=== PATIENT | male | born 1985 | race Caucasian/White ===

== ENCOUNTER → 2019-03-03 11:01 | Outpatient (CLI) | payer OTHER, SELFPAY ==
--- NOTE | 2019-03-03 11:06 | XR_ITS ---
PROCEDURE: XR KNEE RT 3V CLINICAL INDICATION: ACUTE RT KNEE PAIN, ACUTE GOUT COMPARISON: No exams were available for comparison FINDINGS: No fracture or dislocation. No lytic or blastic change. There is normal mineralization. The joint spaces are well-preserved. No significant degenerative/arthritic changes. No erosive changes evident. Other findings:There is increased density in the suprapatellar region consistent with suprapatellar effusion. No bony lytic changes or destruction IMPRESSION: Knee joint effusion otherwise negative Dictated by: Anand Arroyo MD 03/03/2019 11:49 Electronically signed by Anand Arroyo MD in [place] 03/03/2019 11:49
== END ==
PROVIDERS: PCP Family Medicine; Visit Provider Nurse Practitioner
DX: M10.9 Gout, unspecified (principal); M25.561 Pain in right knee
CPT/HCPCS: 73562

== ENCOUNTER → 2019-03-05 15:06 | Outpatient (CLI) | payer OTHER, SELFPAY ==
[2019-03-07 17:08] LABS: Clarity,Fluid Cloudy (Clear); Color,Fluid Yellow (Yellow); Eosinophils,Fluid 0 % (Not Estab.); Lymphocytes,Fluid 9 % (Not Estab.); Macrophages,Fluid 16 % (Not Estab.); Nucleated cells, Syn. Fluid 4026 cells/uL (0-200); Polys,Fluid 75 % (Not Estab.); RBC,Fluid Rare /uL (Not Estab.)
== END ==
PROVIDERS: Visit Provider Orthopaedic Surgery
DX: M10.061 Idiopathic gout, right knee (principal)
CPT/HCPCS: 87070; 87205; 89051

== ENCOUNTER 2020-03-28 13:02 | Emergency (ER) | payer OTHER, SELFPAY ==
[2020-03-28 13:09] VITALS: BP 151/96; PULSE 100; RESP 20; TEMP 36.7; O2SAT 99; BMI 40.9
--- NOTE | 2020-03-28 13:18 | HMH.EDUTC ---
[facility] [place] Disposition Clinical Impression: Gouty arthritis of right great toe Disposition: Home, Self-Care Condition on Discharge: Good Instructions: DI for Gout Prescriptions: methylPREDNISolone [Medrol 4mg tab] 4 mg PO DIRECTED #21 tab Transmission Status: Pending to [facility] Referrals: Neil Neumann MD [Primary Care Provider] - Time of Disposition: 13:21 Medical Decision Making - Ray Inquiry Pt receiving controlled substance: No Vital Signs: 03/28/20 13:09 Temperature 98.1 F Temperature Source Oral Pulse Rate [Radial] 100 H Respiratory Rate 20 Blood Pressure [Right Arm] 151/96 H Blood Pressure Mean [Right Arm] 114 Blood Pressure Source [Right Arm] Automatic Cuff Blood Pressure Position [Right Arm] Sitting 02 Sat by Pulse Oximetry 99 Oxygen Delivery Method Room Air [facility] [place] HPI - General Stated complaint: Gout Time Seen by Provider: 03/28/20 13:18 Mode of Arrival: Ambulatory Source of Information: Patient Limitations: No Limitations Description of Symptoms (Recalled from Triage Doc. by RN): gout flareup right foot HEENT Symptoms (Recalled from RN notes): No Resp Symptoms (Recalled from RN notes): No Skin Symptoms (Recalled from RN notes): No MS Symptoms (Recalled from RN notes): Yes Functional Status (Recalled from RN notes): wnl - History of Present Illness Provider Complaint: Gout right great toe - pain and swelling. Started a few days ago. Onset (ago): day(s) (2) Location: right, lower extremity Radiation: non-radiation Relieving factors: none Exacerbating factors: none Treatments prior to arrival: none - Related Data Home Medications Medication Instructions Recorded Confirmed colchicine 0.6 mg tablet 0.6 mg PO DAILY 03/05/19 03/05/19 indomethacin 50 mg capsule 50 mg PO BID 03/05/19 03/05/19 prednisone 20 mg tablet 20 mg PO BID 03/05/19 03/05/19 sertraline 50 mg tablet 50 mg PO DAILY 03/05/19 03/05/19 trazodone 50 mg tablet 50 mg PO DAILY 03/05/19 03/05/19 Previous Rx's Medication Instructions Recorded methylPREDNISolone [Medrol 4mg 4 mg PO DIRECTED #21 tab 03/28/20 tab] Allergies Allergy/AdvReac Type Severity Reaction Status Date / Time PCN (PENICILLIN) Allergy Mild UNKNOWN Uncoded 03/05/19 13:47 SULFA (SULFONAMIDE) Allergy Mild UNKNOWN Uncoded 03/05/19 13:47 - Worker's Comp Is this a Worker's Comp case?: No [facility] History - Hepatitis A Screen Drug use history?: No High risk sexual behaviors?: No History of sexually transmitted infection?: No Currently employed?: No Childcare worker?: No Do you have indoor plumbing?: Yes Do you have electricity?: Yes Attestation statement:: This patient has been screened for Hepatitis A risk factors. I have reviewed the patient's past medical history: Yes Medical History: Reports:: Hypertension Other Medical History: Reports: Arthritis, Other Comment: History of gout, osteomylitis Laterality Cases: Bilateral: Tonsillectomy Other Surgeries: Yes: Other Fractures: Yes Comment: left ankle fusion - Social History Smoking Status: Former smoker Alcohol Intake: never Substance Use Type: denies use Occupational Status: other Housing: house Household Members: family Family Hx:: Diabetes, Cancer ROS Obtained: Yes All systems reviewed & no additional complaints - Musculoskeletal Musculoskeletal: Reports other (pain and swelling right great toe) Physical Exam - General General appearance: alert, in no apparent distress - Head Head exam: atraumatic, normocephalic, normal inspection - Eye Eye exam: Present: normal appearance, PERRL, EOMI - ENT ENT exam: Present: normal exam, normal oropharynx, mucous membranes moist, TM's normal bilaterally, normal external ear exam - Neck Neck exam: Present: normal inspection, full ROM, trachea midline. Absent: meningismus, lymphadenopathy - Chest Chest inspection: Present: normal inspection, symmetric chest wall rise. Absent: tenderness - Respirato
[2020-03-28 13:49] VITALS: BP 151/96; PULSE 100; RESP 20; TEMP 36.7; O2SAT 99
== END 2020-03-28 13:50 | disposition home or self-care (01) ==
PROVIDERS: Emergency Provider Physician Assistant; PCP Family Medicine
DX: M10.071 Idiopathic gout, right ankle and foot (principal); I10 Essential (primary) hypertension; Z88.0 Allergy status to penicillin; Z88.2 Allergy status to sulfonamides
CPT/HCPCS: 96372; 99201; J1030

== ENCOUNTER → 2020-04-15 15:02 | Outpatient (CLI) | payer OTHER, SELFPAY ==
--- NOTE | 2020-04-15 15:09 | XR_ITS ---
PROCEDURE: XR FOOT RT MIN 3V CLINICAL INDICATION: PLANTAR FASCIAL FIBROMATOSIS,RT FOOT PAIN COMPARISON: No exams were available for comparison FINDINGS: No fracture or dislocation. No lytic or blastic change. There is normal mineralization. Minimal hallux valgus. There is a prominent posterior talar process/os trigonum. Mild osteoarthritic changes are present at the talonavicular joint and navicular cuneiform joint. Other findings:None. IMPRESSION: Mild degenerative changes Dictated by: Anand Arroyo MD 04/15/2020 16:37 Anand Arroyo MD in [place] 04/15/2020 16:37
== END ==
PROVIDERS: PCP Family Medicine; Visit Provider Nurse Practitioner
DX: M72.2 Plantar fascial fibromatosis (principal); M79.671 Pain in right foot
CPT/HCPCS: 73630

== ENCOUNTER → 2020-05-24 10:52 | Outpatient (CLI) | payer OTHER, SELFPAY ==
--- NOTE | 2020-05-24 11:04 | XR_ITS ---
PROCEDURE: XR ANKLE WT BEARING RT MIN 3V CLINICAL INDICATION: pain COMPARISON: CR XR FOOT WT BEARING RT 3V from 05/24/2020 FINDINGS: No fracture or dislocation. No lytic or blastic change. There is normal mineralization. The joint spaces are well-preserved. No significant degenerative/arthritic changes. No erosive changes evident. Other findings:None. IMPRESSION: No acute findings. Dictated by: Anand Arroyo MD 05/24/2020 17:17 Anand Arroyo MD in [place] 05/24/2020 17:17
--- NOTE | 2020-05-24 11:04 | XR_ITS ---
PROCEDURE: XR FOOT WT BEARING RT 3V CLINICAL INDICATION: Pain COMPARISON: CR XR FOOT RT MIN 3V from 04/15/2020 FINDINGS: No fracture or dislocation. No lytic or blastic change. There is normal mineralization. There are mild osteoarthritic changes of the talonavicular and navicular cuneiform joint as well as the tarsal metatarsal joints. There is a small calcific density as seen on the oblique view between the junction the navicular cuboid talus and calcaneus. This may only be related to an osteophyte with an overlying Mach line. Cannot exclude the possibility of an avulsion fracture at this area. Other findings:None. IMPRESSION: Mild osteoarthritic changes. Osteophyte with Mach line versus avulsion fracture of the talus at the junction of the talus calcaneus navicular and cuneiform. Dictated by: Anand Arroyo MD 05/24/2020 18:10 Anadn Arroyo MD in [place] 05/24/2020 18:10
== END ==
PROVIDERS: PCP Nurse Practitioner; Visit Provider Podiatrist
DX: M76.71 Peroneal tendinitis, right leg (principal)
CPT/HCPCS: 73610; 73630

== ENCOUNTER 2020-08-29 16:02 | Emergency (ER) | payer OTHER, SELFPAY ==
[2020-08-29 16:05] VITALS: BP 194/105; PULSE 91; RESP 20; TEMP 36.8; O2SAT 99; BMI 42.0
--- NOTE | 2020-08-29 16:22 | HMH.EDUTC ---
[facility] [place] Impression: Gout attack Qualifiers: Gout site: knee Gout etiology: unspecified cause Laterality: left Qualified Code(s): M10.9 - Gout, unspecified Disposition: Home, Self-Care Condition on Discharge: Good Instructions: Gout, DI for Gout, Indomethacin, Losartan Additional Instructions: Follow up with your Family Doctor if needed You was given enough blood pressure medication for 2 weeks until you can get into your Family Doctor to get refill make sure you follow up Start oral steriod tomorrow 08/30/20 Return if needed Straight to ER if any life threatening symptoms Prescriptions: Indomethacin 50 mg PO TID 10 Days #30 cap Transmission Status: Received by [id number] Losartan Potassium 50 mg PO DAILY 14 Days #14 tab Transmission Status: Received by [id number] methylPREDNISolone [Medrol 4mg tab] 4 mg PO DIRECTED #21 tab Transmission Status: Received by [id number] Referrals: Neil Neumann MD [Primary Care Provider] - As needed Time of Disposition: 16:58 Medical Decision Making - Ray Inquiry Pt receiving controlled substance: No Ray was queried for this patient: No Vital Signs: 08/29/20 16:05 Temperature 98.3 F Temperature Source Oral Pulse Rate [Right Brachial] 91 H Respiratory Rate 20 Blood Pressure [Right Arm] 194/105 H Blood Pressure Mean [Right Arm] 134 Blood Pressure Source [Right Arm] Automatic Cuff Blood Pressure Position [Right Arm] Sitting 02 Sat by Pulse Oximetry 99 Oxygen Delivery Method Room Air Orders (Tests/Meds): ED MEDICATIONS Discontinued Medications Generic Name Dose Route Start Last Admin Trade Name Freq PRN Reason Stop Dose Admin Methylprednisolone Sodium Succinate 125 mg 08/29/20 16:25 08/29/20 16:35 Methylprednisolone Sod Succ 125mg Vial IM 08/29/20 16:26 125 mg ONCE ONE Administration [facility] [place] - General Stated complaint: gout in left knee Time Seen by Provider: 08/29/20 16:22 Mode of Arrival: Ambulatory Source of Information: Patient Limitations: No Limitations Description of Symptoms (Recalled from Triage Doc. by RN): PATIENT C/O GOUT IN LEFT KNEE X 3 DAYS HEENT Symptoms (Recalled from RN notes): No Resp Symptoms (Recalled from RN notes): No Skin Symptoms (Recalled from RN notes): No MS Symptoms (Recalled from RN notes): Yes Functional Status (Recalled from RN notes): WNL - History of Present Illness Provider Complaint: Patient states that he has a history of gout in his left knee States that for the last 3 days he has felt it coming back State that ever so often he has a gout flare and has to come in and get a shot and get treated States that today it was still bothering him so he came in to get treated States that also he is out of his blood pressure medication and hasnt been able to get into his PCP and needed to see if he could get some - Related Data Home Medications Medication Instructions Recorded Confirmed indomethacin 50 mg capsule 50 mg PO BID 03/05/19 05/24/20 allopurinol 300 mg tablet 300 mg PO tab 05/24/20 05/24/20 Previous Rx's Medication Instructions Recorded diclofenac sodium 1 % topical gel 4 g TOPICAL QID PRN 30 Days #100 g 05/24/20 meloxicam 7.5 mg tablet 7.5 mg PO ONCE 30 Days #30 tab 05/24/20 methylprednisolone 4 mg tablets in 4 mg PO PER PKG DIR #21 tab 05/24/20 a dose pack Indomethacin 50 mg PO TID 10 Days #30 cap 08/29/20 Losartan Potassium 50 mg PO DAILY 14 Days #14 tab 08/29/20 methylPREDNISolone [Medrol 4mg 4 mg PO DIRECTED #21 tab 08/29/20 tab] Allergies Allergy/AdvReac Type Severity Reaction Status Date / Time Penicillins Allergy Unknown Verified 05/24/20 09:59 Sulfa (Sulfonamide Allergy Unknown Verified 05/24/20 09:59 Antibiotics) - Worker's Comp Is this a Worker's Comp case?: No [facility] History - Hepatitis A Screen Drug use history?: No High risk sexual behaviors?: No History of sexually transmitted infection?
[2020-08-29 16:58] VITALS: BP 194/105; PULSE 91; RESP 20; TEMP 36.8; O2SAT 99
== END 2020-08-29 17:03 | disposition home or self-care (01) ==
PROVIDERS: Emergency Provider Nurse Practitioner; PCP Family Medicine
DX: M10.062 Idiopathic gout, left knee (principal); I10 Essential (primary) hypertension; Z79.899 Other long term (current) drug therapy
CPT/HCPCS: 96372; 99202; G0463

== ENCOUNTER 2020-10-14 19:33 | Emergency (ER) | payer OTHER, SELFPAY ==
[2020-10-14 19:35] VITALS: BP 167/105; PULSE 91; RESP 19; TEMP 36.8; O2SAT 98; BMI 41.0
--- NOTE | 2020-10-14 19:53 | HMH.EDUTC ---
[facility] [place] Impression: Gout attack Qualifiers: Gout site: hand Gout etiology: unspecified cause Laterality: right Qualified Code(s): M10.9 - Gout, unspecified Disposition: Home, Self-Care Condition on Discharge: Good Instructions: Gout, DI for Gout, Indomethacin, Methylprednisolone Additional Instructions: Start your Indomethacin and Medrol dose pack tomorrow when you pick it up from the pharmacy Take medication as directed Follow up with Family Doctor if no improvement or any worsening of symptoms Return if needed Straight to ER if any life threatening symptoms Prescriptions: Indomethacin 50 mg PO TID 10 Days #30 cap Transmission Status: Received by [facility] methylPREDNISolone [Medrol 4mg tab] 4 mg PO DIRECTED #21 tab Transmission Status: Received by [facility] Referrals: Neil Neumann MD [Primary Care Provider] - As needed Time of Disposition: 20:25 Medical Decision Making - Ray Inquiry Pt receiving controlled substance: No Ray was queried for this patient: No Vital Signs: 10/14/20 19:35 Temperature 98.3 F Temperature Source Oral Pulse Rate [Left Brachial] 91 H Respiratory Rate 19 Blood Pressure [Left Arm] 167/105 H Blood Pressure Mean [Left Arm] 125 Blood Pressure Source [Left Arm] Automatic Cuff Blood Pressure Position [Left Arm] Sitting 02 Sat by Pulse Oximetry 98 Oxygen Delivery Method Room Air - Lab Data Lab Results 10/14/20 20:00: Uric Acid 11.5 H Orders (Tests/Meds): ED MEDICATIONS Discontinued Medications Generic Name Dose Route Start Last Admin Trade Name Freq PRN Reason Stop Dose Admin Methylprednisolone Sodium Succinate 125 mg 10/14/20 20:21 10/14/20 20:29 Methylprednisolone Sod Succ 125mg Vial IM 10/14/20 20:22 125 mg ONCE ONE Administration ORDERS Category Date Time Status XR hand RT min 3V Stat Exams 10/14/20 19:58 Taken - Radiology Data #1 Image(s): Hand (right) Image Reviewed: Yes I reviewed the patient's radiology image Preliminary Findings: No Fracture Seen Medical Decision Narrative: Patient states that he has taken Indomethacin and Medrol in the past without reactions or complications [facility] [place] - General Stated complaint: right hand pain and swollen Time Seen by Provider: 10/14/20 19:40 Mode of Arrival: Ambulatory Source of Information: Patient Limitations: No Limitations Description of Symptoms (Recalled from Triage Doc. by RN): PATIENT C/O SWELLING TO RIGHT HAND X 3 DAYS HEENT Symptoms (Recalled from RN notes): No Resp Symptoms (Recalled from RN notes): No Skin Symptoms (Recalled from RN notes): No MS Symptoms (Recalled from RN notes): Yes Functional Status (Recalled from RN notes): WNL - History of Present Illness Provider Complaint: Patient states that he has been having pain, redness and swelling in right hand for the last 3 days State that pain seems to coming mostly from ring finger States that he has a history of gout and feels like it does when his gout acts up Denies known injury - Related Data Home Medications Medication Instructions Recorded Confirmed indomethacin 50 mg capsule 50 mg PO BID 03/05/19 05/24/20 allopurinol 300 mg tablet 300 mg PO tab 05/24/20 05/24/20 Previous Rx's Medication Instructions Recorded diclofenac sodium 1 % topical gel 4 g TOPICAL QID PRN 30 Days #100 g 05/24/20 meloxicam 7.5 mg tablet 7.5 mg PO ONCE 30 Days #30 tab 05/24/20 methylprednisolone 4 mg tablets in 4 mg PO PER PKG DIR #21 tab 05/24/20 a dose pack Indomethacin 50 mg PO TID 10 Days #30 cap 08/29/20 Losartan Potassium 50 mg PO DAILY 14 Days #14 tab 08/29/20 methylPREDNISolone [Medrol 4mg 4 mg PO DIRECTED #21 tab 08/29/20 tab] Indomethacin 50 mg PO TID 10 Days #30 cap 10/14/20 methylPREDNISolone [Medrol 4mg 4 mg PO DIRECTED #21 tab 10/14/20 tab] Allergies Allergy/AdvReac Type Severity Reaction Status Date / Time Penicillins Allergy Unknown V
--- NOTE | 2020-10-14 19:58 | XR_ITS ---
PROCEDURE INFORMATION: Exam: XR Right Hand Exam date and time: 10/14/2020 7:58 PM Age: 35 years old Clinical indication: Patient HX: Right hand pain and swelling since Russ, no known injury. Patient stated prior HX of gout. Very large patient. TECHNIQUE: Imaging protocol: XR Right hand. Views: 3 or more views. Total images: 3 COMPARISON: No relevant prior studies available. FINDINGS: Bones/joints: No fractures. 5 mm subcortical cyst in the lateral aspect of the 3rd metacarpal head which is nonspecific and may be degenerative. Questionable small carpal erosions involving the lunate and proximal hamate. No articular subluxations. No juxta-articular osteopenia is evident. No subperiosteal bone resorption. No chondrocalcinosis. Soft tissues: No periostitis or osteolysis. Nonspecific soft tissue swelling in the hand, predominantly dorsally. No soft tissue nodularity. No soft tissue calcification. No radiopaque foreign bodies. No soft tissue air. Other findings: Carpal relationships are normal. Distal radioulnar alignment is normal. Normal mineralization. IMPRESSION: 1. Nonspecific soft tissue swelling in the hand, predominantly dorsal. 2. There are few small 1-2 mm suspected carpal erosions versus degenerative subcortical cysts involving the lunate and proximal hamate, and a 5 mm subcortical cyst in the 3rd metacarpal head. The pattern is not highly specific for inflammatory arthropathy at this point and could simply represent degenerative subcortical cystic change, although early changes of chronic inflammatory arthropathy are not excluded. There are no specific radiographic features of gout currently.
[2020-10-14 20:16] LABS: Uric Acid 11.5 mg/dl (3.5-8.5)
[2020-10-14 20:40] VITALS: BP 167/105; PULSE 91; RESP 19; TEMP 36.8; O2SAT 98
== END 2020-10-14 20:43 | disposition home or self-care (01) ==
PROVIDERS: Emergency Provider Nurse Practitioner; PCP Family Medicine
DX: M10.041 Idiopathic gout, right hand (principal); I10 Essential (primary) hypertension; Z79.899 Other long term (current) drug therapy
CPT/HCPCS: 73130; 84550; 96372; 99202; G0463

== ENCOUNTER 2020-11-17 13:16 | Emergency (ER) | payer OTHER, SELFPAY ==
[2020-11-17 13:17] VITALS: BP 177/104; PULSE 96; RESP 20; TEMP 37.1; O2SAT 97; BMI 42.3
[2020-11-17 14:00] VITALS: BP 132/75; PULSE 79; RESP 20; O2SAT 96
[2020-11-17 14:30] VITALS: BP 135/74; PULSE 83; RESP 20; O2SAT 97
[2020-11-17 15:00] VITALS: BP 148/79; PULSE 81; O2SAT 97
--- NOTE | 2020-11-17 15:00 | HMH.EDGENADL ---
ED Disposition Clinical Impression: Effusion, right knee Gout Qualifiers: Gout site: knee Gout etiology: unspecified cause Chronicity: acute Laterality: right Qualified Code(s): M10.9 - Gout, unspecified Disposition: Home, Self-Care Condition on Discharge: Fair Additional Instructions: Call Dr. Phillips's office again to see if you can move appointment sooner. I recommend that she be seen within the next 2 days. Percocet as needed for pain. Prednisone and Indocin as prescribed. Crutches as needed. Return to the emergency department if worsening pain or any fever greater than 100.4 degrees. Additional instructions for CONTROLLED SUBSTANCES: You have been prescribed a medication that is a controlled substance. Controlled substances include pain medications known as opiates and sedative nerve medications known as benzodiazepines. Tramadol, fioricet, and gabapentin are also controlled substances. Some common opiates include: Codeine (such as Tylenol #3) Hydrocodone (Vicodin, Lortab, Lorcet, Nelson) Oxycodone (Percocet, Percodan, Oxycodone, Oxy IR) Some common benzodiazepines include: Diazepam (Valium) Lorazepam (Ativan) Alprazolam (Xanax) Clonazepam (Klonopin) Oxazepam (Serax) All of these controlled substances are highly addictive and frequently abused. Misuse can and frequently does lead to addiction as well as overdose and . Medication should be stored in a locked cabinet or other secure storage unit. Do not store the medication in a motor vehicle. Short term supplies, 3 days or less, are prescribed because of the highly addictive nature of the medication. Any of the controlled substance medication NOT taken should be disposed of properly and NOT SAVED. The recommended method of disposing of unused medications is: Place the medicines in a sealable plastic bag. If the medicine is a solid, crush it or add water to dissolve it. Add something undesirable (cat litter, coffee grounds, etc.) Dispose of sealed bag in household trash Do not flush or pour unused medicines down a sink or drain. Controlled substances should not be shared, given away or sold. Because of the addictive nature and frequent abuse, these medications are sometimes stolen. These medications should be kept in a safe place where they cannot be stolen. Do not keep them in your car or purse. Lost or stolen prescriptions for controlled substances WILL NOT BE REFILLED in this emergency department, regardless of whether a police report was filed. Prescriptions: Oxycodone HCl/Acetaminophen [Percocet 5/325mg tablet] 1 tab PO Q6HP PRN #10 tablet PRN Reason: Moderate To Severe Pain Transmission Status: Sent to [facility] Indomethacin 50 mg PO TID #15 cap Transmission Status: Pending to [facility] predniSONE [Prednisone 20mg Tab] 20 mg PO BID #10 tab Transmission Status: Pending to [facility] Referrals: Neil Neumann MD [Primary Care Provider] - - Critical Care Critical Care Time: No Attestation: On 11/17/20, the high probability of a clinically significant, sudden or life threatening deterioration of the following system(s) required my full and direct attention, intervention and personal management. The time I documented below is in addition to time spent performing reported procedures but includes the following listed in this critical care notation. Medical Decision Making - Medical Records Medical records reviewed: Yes: I reviewed the patient's medical records. MR Comment: Reviewed prior meds. Confirms patient's history regarding his medications. Reviewed prior orthopedic visit to Dr. Phillips. - Ray Inquiry Pt receiving controlled substance: Yes Ray was queried for this patient: Yes Risks and benefits of using a controlled substance: were discussed with pt by me Vital Signs: 11/17/20 13:17 11/17/20 14:00 11/17/20 14:30 Temperature 98.8 F Temperature Source Oral Pulse Rat
[2020-11-17 15:30] VITALS: BP 148/80; PULSE 72; O2SAT 97
[2020-11-17 15:59] VITALS: BP 140/80; PULSE 72; RESP 18; TEMP 37.1; O2SAT 97
== END 2020-11-17 17:20 | disposition home or self-care (01) ==
PROVIDERS: Emergency Provider Emergency Medicine; PCP Family Medicine
DX: M25.461 Effusion, right knee (principal); M10.061 Idiopathic gout, right knee; I10 Essential (primary) hypertension; Z88.0 Allergy status to penicillin; Z88.2 Allergy status to sulfonamides
CPT/HCPCS: 96374; 96375; 99282; J2405

== ENCOUNTER → 2020-11-30 13:57 | Outpatient (CLI) | payer OTHER, SELFPAY ==
--- NOTE | 2020-11-30 14:00 | XR_ITS ---
PROCEDURE: XR KNEE RT 4V CLINICAL INDICATION: right knee pain COMPARISON: CR XR KNEE RT 3V from 03/03/2019 FINDINGS: No fracture or dislocation. No lytic or blastic change. There is normal mineralization. There are minimal osteoarthritic changes involving all 3 compartments. Small suprapatellar effusion is noted. Other findings:None. IMPRESSION: Minimal osteoarthritis with small knee joint effusion. The joint space narrowing is slightly greater when compared to 03/03/2019 Dictated by: Anand Arroyo MD 11/30/2020 14:55 Anand Arroyo MD in [place] 11/30/2020 14:55
== END ==
PROVIDERS: PCP Family Medicine; Visit Provider Orthopaedic Surgery
DX: M25.461 Effusion, right knee (principal)
CPT/HCPCS: 73564

== ENCOUNTER 2020-12-12 13:41 | Emergency (ER) | payer OTHER, SELFPAY ==
[2020-12-12 13:58] VITALS: BP 195/113; PULSE 99; RESP 20; TEMP 36.8; O2SAT 98; BMI 40.4
[2020-12-12 14:10] VITALS: BP 0/0; PULSE 92; RESP 21; TEMP 36.9
--- NOTE | 2020-12-12 14:34 | HMH.EDUTC ---
[facility] [place] Clinical Impression: Exposure to COVID-19 virus Disposition: Home, Self-Care Condition on Discharge: Good Instructions: Preventing the Spread of Coronavirus Discharge Instructions Additional Instructions: Drink plenty of fluids. Take tylenol for pain or fever. Return if you begin to have difficulty breathing. Follow up with your regular doctor. GO TO THE ER FOR ANY WORSENING SYMPTOMS Quarantine until you know the results of your covid-19 test. If it is positive, the health department should call you and give you further instructions about your length of Quarantine and other thing. follow up with your primary care doctor regarding your elevated blood pressure. Referrals: Neil Neumann MD [Primary Care Provider] - Time of Disposition: 14:36 Medical Decision Making - Medical Records Medical records reviewed: No: I reviewed the patient's medical records. - Ray Inquiry Pt receiving controlled substance: No Vital Signs: 12/12/20 13:58 12/12/20 14:10 Temperature 98.3 F 98.4 F Temperature Source Oral Pulse Rate 92 H Pulse Rate [Left] 99 H Respiratory Rate 20 21 Blood Pressure 0/0 L Blood Pressure [Right Arm] 195/113 H Blood Pressure Mean [Right Arm] 140 02 Sat by Pulse Oximetry 98 Orders (Tests/Meds): ORDERS Category Date Time Status Full Resp Panel w/COVID ([facility]) Routine Lab 12/12/20 14:03 [place] [facility] [place] - General Stated complaint: covid test Time Seen by Provider: 12/12/20 14:34 Mode of Arrival: Ambulatory Source of Information: Patient Limitations: No Limitations Description of Symptoms (Recalled from Triage Doc. by RN): pt was exposed to covid positive pt at work last week. pt is asymptomatic. HEENT Symptoms (Recalled from RN notes): No Resp Symptoms (Recalled from RN notes): No Skin Symptoms (Recalled from RN notes): No MS Symptoms (Recalled from RN notes): No Functional Status (Recalled from RN notes): na - History of Present Illness Provider Complaint: He was exposed to covid-19 around 5 to 6 days. He denies any symptoms. His exposure happened at work. - Related Data Home Medications Medication Instructions Recorded Confirmed allopurinol 300 mg tablet 300 mg PO tab 05/24/20 05/24/20 lisinopril 10 mg tablet 10 mg PO DAILY 11/30/20 11/30/20 Previous Rx's Medication Instructions Recorded diclofenac sodium 1 % topical gel 4 g TOPICAL QID PRN 30 Days #100 g 05/24/20 Losartan Potassium 50 mg PO DAILY 14 Days #14 tab 08/29/20 Indomethacin 50 mg PO TID #15 cap 11/17/20 Oxycodone HCl/Acetaminophen 1 tab PO Q6HP PRN #10 tab 11/17/20 [Percocet 5/325mg tablet] Allergies Allergy/AdvReac Type Severity Reaction Status Date / Time Penicillins Allergy Unknown Verified 11/30/20 15:15 Sulfa (Sulfonamide Allergy Unknown Verified 11/30/20 15:15 Antibiotics) - Worker's Comp Is this a Worker's Comp case?: No [facility] History - Hepatitis A Screen Drug use history?: No High risk sexual behaviors?: No History of sexually transmitted infection?: No Currently employed?: No Childcare worker?: No Do you have indoor plumbing?: Yes Do you have electricity?: Yes Attestation statement:: This patient has been screened for Hepatitis A risk factors. I have reviewed the patient's past medical history: Yes Medical History: Reports:: Anxiety, Hypertension Other Medical History: Reports: Arthritis, Other (Gout ) Comment: Gout Laterality Cases: Bilateral: Tonsillectomy Other Surgeries: Yes: Other Fractures: Yes Comment: left ankle fusion - Social History Smoking Status: Current every day smoker Tobacco Type: smokeless tobacco # Packs/Day (cigarettes): 0 Alcohol Intake: never Substance Use Type: denies use Occupational Status: employed Housing: house Household Members: family - Psychiatric History Pschychiatric History:: Reports:: Anxiety Family Hx:: No significant family history ROS Obtained: Yes All systems reviewed &
[2020-12-12 18:09] LABS: Adenovirus,PCR Not Detected (NotDetected); Bordetella Pertussis Not Detected (NotDetected); Chlamydophila Pneumoniae, PCR Not Detected (NotDetected); Coronavirus 19, PCR Not Detected (NotDetected); Coronavirus 229E Not Detected (NotDetected); Coronavirus NL63 Not Detected (NotDetected); Coronavirus OC43 Not Detected (NotDetected); Coronovirus HKU1,PCR Not Detected (NotDetected); Human Metapneumovirus Not Detected (NotDetected); Influenza A, PCR Not Detected (NotDetected); Influenza AH1, 2009 Not Detected (NotDetected); Influenza AH1, PCR Not Detected (NotDetected); Influenza AH3,PCR Not Detected (NotDetected); Influenza B, PCR Not Detected (NotDetected); Mycoplasma Pneumoniae, PCR Not Detected (NotDetected); Parainfluenza 1, PCR Not Detected (NotDetected); Parainfluenza 2, PCR Not Detected (NotDetected); Parainfluenza 3, PCR Not Detected (NotDetected); Parainfluenza 4, PCR Not Detected (NotDetected); Respiratory Syncytial Virus Not Detected (NotDetected); Rhinovirus/Enterovirus Not Detected (NotDetected)
== END 2020-12-12 14:49 | disposition home or self-care (01) ==
PROVIDERS: Emergency Provider Nurse Practitioner Family; PCP Family Medicine
DX: Z20.822 Contact with and (suspected) exposure to COVID-19 (principal); F41.9 Anxiety disorder, unspecified; F17.210 Nicotine dependence, cigarettes, uncomplicated; Z88.0 Allergy status to penicillin; Z88.2 Allergy status to sulfonamides
CPT/HCPCS: 87581; 87633; 87798; 99202; G0463

== ENCOUNTER → 2021-05-16 14:31 | Outpatient (CLI) | payer OTHER, SELFPAY | PROVIDERS: Visit Provider Nurse Practitioner | DX: U07.1 COVID-19 (principal) | CPT/HCPCS: C9803; U0003; U0005 ==

== ENCOUNTER → 2022-12-05 15:47 | Outpatient (CLI) | payer BC, OTHER, SELFPAY ==
[2022-12-05 16:50] LABS: Basophils # 0.1 K/mm3 (0-0.2); Basophils % 0.5 % (0.1-2.0); Eosinophils # 0.1 K/mm3 (0.0-0.4); Eosinophils % 1.1 % (0.1-12.0); Hematocrit 43.5 % (42.0-52.0); Hemoglobin 14.1 g/dL (14.1-18.0); Lymphocytes # 2.9 K/mm3 (0.7-4.5); Mean Corpuscular HGB Conc 32.5 g/dL (31.8-35.4); Mean Corpuscular Hemoglobin 29.5 pg (27.0-31.2); Mean Corpuscular Volume 90.6 fl (80-94); Mean Platelet Volume 9.4 fl (7.4-10.4); Monocytes # 0.6 K/mm3 (0.1-1.0); Monocytes % 6.5 % (1.7-9.3); Neutrophils % 61.9 % (37.0-80.0); Platelet Count 298 K/mm3 (142-424); Red Cell Distribution Width 13.9 % (11.5-17.5); White Blood Count 9.7 K/mm3 (4.8-10.8)
[2022-12-05 17:38] LABS: Uric Acid 9.7 mg/dl (3.5-8.5)
== END ==
PROVIDERS: Nurse Practitioner Family; PCP Family Medicine; Visit Provider Family Medicine
DX: R50.9 Fever, unspecified (principal); M10.021 Idiopathic gout, right elbow; M25.421 Effusion, right elbow
CPT/HCPCS: 36415; 84550; 85025

== ENCOUNTER → 2023-03-15 10:19 | Outpatient (CLI) | payer BC, OTHER, SELFPAY ==
[2023-03-15 18:19] LABS: Blood Urea Nitrogen 12 mg/dl (9-20); Calcium 9.2 mg/dl (8.4-10.2); Carbon Dioxide 29 mmol/L (22.0-30.0); Chloride 99 mmol/L (98-107); Estimated Glomerular Filt Rate 109 ml/min (>60); GFR (African American) 132 ML/MIN (>60); Glucose 110 mg/dl (74-100); Potassium 4.3 mmoL/L (3.5-5.1); Uric Acid 8.1 mg/dl (3.5-8.5)
[2023-03-15 18:32] LABS: Anion Gap 15.3 mEq/L (5-15); Sodium 139 mmol/L (136-145)
== END ==
PROVIDERS: PCP Nurse Practitioner Family; Visit Provider Internal Medicine
DX: I10 Essential (primary) hypertension (principal); M10.9 Gout, unspecified; F17.220 Nicotine dependence, chewing tobacco, uncomplicated
CPT/HCPCS: 80048; 84550

== ENCOUNTER → 2023-04-07 08:48 | Outpatient (CLI) | payer BC, OTHER, SELFPAY ==
[2023-04-07 09:07] LABS: Basophils # 0.1 K/mm3 (0-0.2); Basophils % 0.8 % (0.1-2.0); Eosinophils # 0.2 K/mm3 (0.0-0.4); Hematocrit 46.7 % (42.0-52.0); Hemoglobin 15.2 g/dL (14.1-18.0); Lymphocytes # 2.8 K/mm3 (0.7-4.5); Lymphocytes % 39.6 % (10-50); Mean Corpuscular HGB Conc 32.5 g/dL (31.8-35.4); Mean Corpuscular Volume 92.3 fl (80-94); Mean Platelet Volume 8.4 fl (7.4-10.4); Monocytes # 0.3 K/mm3 (0.1-1.0); Monocytes % 4.3 % (1.7-9.3); Neutrophils # 3.7 K/mm3 (1.8-7.8); Neutrophils % 52.4 % (37.0-80.0); Platelet Count 304 K/mm3 (142-424); Red Blood Count 5.06 M/mm3 (4.60-6.20); White Blood Count 7.1 K/mm3 (4.8-10.8)
[2023-04-07 09:15] LABS: Hemoglobin A1C 7.6 % (4.0-6.0)
[2023-04-07 10:51] LABS: Alanine Aminotransferase 76 U/L (12-78); Albumin Level 4.4 g/dl (3.5-5.0); Albumin/Globulin Ratio 1.5 (1.1-1.8); Alkaline Phosphatase 93 U/L (38-126); Anion Gap 11.1 mEq/L (5-15); Aspartate Amino Transferase 57 U/L (17-59); Bilirubin,Total 0.6 mg/dl (0.2-1.3); Blood Urea Nitrogen 12 mg/dl (9-20); Calcium 8.8 mg/dl (8.4-10.2); Carbon Dioxide 30 mmol/L (22.0-30.0); Chloride 99 mmol/L (98-107); Chol/HDL Ratio 6.8 (1-3.5); Cholesterol 244 mg/dl (140-200); Estimated Glomerular Filt Rate 109 ml/min (>60); GFR (African American) 132 ML/MIN (>60); Glucose 138 mg/dl (74-100); HDL Cholesterol 36 mg/dl (40-60); Potassium 4.1 mmoL/L (3.5-5.1); Sodium 136 mmol/L (136-145); Total Protein,Serum 7.4 g/dl (6.3-8.2); Triglycerides 271 mg/dl (30-150); VLDL Cholesterol 54 mg/dL (0-40)
[2023-04-07 11:02] LABS: Direct LDL Cholesterol 167.69 mg/dL (100-129)
[2023-04-07 11:08] LABS: 25-OH Vitamin D, Total 59.7 ng/mL (30-100)
[2023-04-07 11:23] LABS: Thyroid Stimulating Hormone 1.53 uIU/mL (0.465-4.68)
== END ==
PROVIDERS: PCP Internal Medicine; Visit Provider Internal Medicine
DX: Z00.00 Encounter for general adult medical examination without abnormal findings (principal); Z13.29 Encounter for screening for other suspected endocrine disorder; Z13.220 Encounter for screening for lipoid disorders; Z13.21 Encounter for screening for nutritional disorder; Z13.1 Encounter for screening for diabetes mellitus; R73.9 Hyperglycemia, unspecified; E78.00 Pure hypercholesterolemia, unspecified; Z79.899 Other long term (current) drug therapy; E66.9 Obesity, unspecified; Z68.41 Body mass index [BMI] 40.0-44.9, adult
CPT/HCPCS: 36415; 80053; 80061; 82306; 83036; 84439; 84443; 85025

== ENCOUNTER → 2023-04-19 07:10 | Outpatient (CLI) | payer BC, OTHER, SELFPAY ==
[2023-04-18 17:51] LABS: Adenovirus,PCR Not Detected (NotDetected); Coronavirus 19, PCR Not Detected (NotDetected); Coronavirus 229E Not Detected (NotDetected); Coronavirus NL63 Not Detected (NotDetected); Coronavirus OC43 Not Detected (NotDetected); Coronovirus HKU1,PCR Not Detected (NotDetected); Human Metapneumovirus Not Detected (NotDetected); Influenza A, PCR Not Detected (NotDetected); Influenza AH1, 2009 Not Detected (NotDetected); Influenza AH1, PCR Not Detected (NotDetected); Influenza AH3,PCR Not Detected (NotDetected); Influenza B, PCR Not Detected (NotDetected); Parainfluenza 1, PCR Not Detected (NotDetected); Parainfluenza 2, PCR Not Detected (NotDetected); Parainfluenza 3, PCR Not Detected (NotDetected); Parainfluenza 4, PCR Not Detected (NotDetected); Rhinovirus/Enterovirus Not Detected (NotDetected)
[2023-04-18 21:50] LABS: Respiratory Syncytial Virus Detected (NotDetected)
== END ==
LOC: LAB.DROPOF 04-20 07:11
PROVIDERS: PCP Internal Medicine; Visit Provider Internal Medicine
DX: R05.9 Cough, unspecified (principal); B97.4 Respiratory syncytial virus as the cause of diseases classified elsewhere
CPT/HCPCS: 87632; 87635

== ENCOUNTER 2023-06-09 12:37 | Emergency (ER) | payer BC, SELFPAY ==
[2023-06-09 13:40] VITALS: BP 135/87; PULSE 97; RESP 18; TEMP 37.2; O2SAT 99; BMI 40.4
--- NOTE | 2023-06-09 13:47 | EXP.UTC ---
Discharge Plan Disposition Patient Disposition: Home, Self-Care Condition: Good Prescriptions Prescriptions: New colchicine 0.6 mg tablet 0.6 mg PO ONCE Qty: 3 0RF Rx Instructions: Take 2 tablets, then take 1 tablet 6 hours later prednisone [prednisone] 20 mg tablet 20 mg PO BID 5 Days Qty: 10 0RF No Action amlodipine 10 mg tablet 10 mg PO DAILY benzonatate 100 mg capsule 100 mg PO TID PRN (Reason: cough) Qty: 30 2RF losartan 50 mg tablet 50 mg PO DAILY Qty: 30 2RF febuxostat 80 mg tablet 80 mg PO DAILY Qty: 30 2RF metformin 1,000 mg tablet 1,000 mg PO BID Qty: 60 2RF Ozempic 0.25 mg or 0.5 mg (2 mg/3 mL) pen injector 0.25 mg SQ WEEKLY Qty: 3 1RF Rx Instructions: for 4 weeks Referrals Follow up/Referrals: Dharmesh Bravo DO [Primary Care Provider] - See instructions Activity Restrictions/Add. Instructions Additional Instructions/Restrictions: Rest the extremity. Take the medications as directed. Don't start the oral steroids (prednisone) until tomorrow since you had the shot here today. Follow up with your regular doctor. GO TO THE ER FOR ANY WORSENING SYMPTOMS Clinical Impressions Clinical Impression: Gout attack Stand Alone Forms Stand Alone Forms: Work/School Release Instructions Patient Instructions: DI for Gout, Colchicine, Ketorolac Injection, Dexamethasone Injection Discharge ED Provider: Mike Zavala [facility] [place] HPI General Stated complaint: Gaut in left knee Time Seen by Provider: 06/09/23 13:47 History of Present Illness Provider Complaint: He c/o right knee pain for the past 2 days. He denies any injury. He states that he has a history of gout and this is his normal gout symptoms. Related Data Home Medications Medication Instructions Recorded Confirmed amlodipine 10 mg tablet 10 mg PO DAILY 04/18/23 04/18/23 Previous Rx's Medication Instructions Recorded febuxostat 80 mg tablet 80 mg PO DAILY #30 tabs 04/04/23 losartan 50 mg tablet 50 mg PO DAILY #30 tabs 04/04/23 benzonatate 100 mg capsule 100 mg PO TID PRN cough #30 caps 04/18/23 metformin 1,000 mg tablet 1,000 mg PO BID #60 tabs 05/02/23 semaglutide 0.25 mg or 0.5 mg (2 0.25 mg (0.368 mL) SQ WEEKLY #3 mL 05/31/23 mg/3 mL) subcutaneous pen injector (Ozempic) colchicine 0.6 mg tablet 0.6 mg PO ONCE #3 tabs 06/09/23 prednisone 20 mg tablet 20 mg PO BID 5 days #10 tabs 06/09/23 Allergies Allergy/AdvReac Type Severity Reaction Status Date / Time Penicillins Allergy Unknown Verified 06/09/23 13:53 Sulfa (Sulfonamide Allergy Unknown Verified 06/09/23 13:53 Antibiotics) [facility] Disclaimer: The information contained in this section may have been updated after the patient was seen, as this information can be updated by other users. Surgical History History of ankle surgery Social History Smoking Status: Current every day smoker tobacco type: smokeless tobacco alcohol intake: never substance use type: denies use current occupational status: employed Travel in the last 8 weeks: None household members: family housing: house ROS Obtained: Yes All systems reviewed & no additional complaints except as documented Constitutional Constitutional: Denies chills and Denies fever(s) Eyes Eyes: Denies eye discharge ENT Ears, Nose, Mouth, and Throat: Denies dizziness, Denies otalgia and Denies sore throat Cardiovascular Cardiovascular: Denies chest pain Respiratory Respiratory: Denies shortness of breath, Denies chest congestion, Denies cough, Denies stridor and Denies wheezing Gastrointestinal Gastrointestingal: Denies nausea or vomiting Musculoskeletal Musculoskeletal: Reports as per HPI Integumentary/Breasts Skin/Breast: Denies rash Neurologic Neurologic: Denies dizziness and Denies paresthesias Allergic/Immunologic Allergic/Immunologic: Denies wheezing Physical Exam General General appearance: alert and in no apparent distress Head Head exam: atraumatic, normocephalic and normal inspection Eye Eye exam: Present normal appearance, PERRL and EOMI ENT ENT exam: Present normal exam, normal oropharynx, mucous membranes moist, TM's normal bilaterally and normal external ear exam Neck Neck exam: Present normal inspection, full ROM and trachea midline; Absent meningismus or lymphadenopathy Chest Chest inspection: Present normal inspection and symmetric chest wall rise; Absent tenderness Respiratory Respiratory exam: Present normal lung sounds bilaterally; Absent respiratory distress Cardiovascular Cardiovascular exam: Present regular rate and normal rhythm; Absent JVD Abdominal Exam Abdominal exam: Present soft and normal bowel sounds; Absent distention, tenderness or guarding Extremities Exam Extremities exam: Present normal capillary refill; Absent calf tenderness Expanded Lower Extremity Exam Right: Knee exam: Present full ROM, tenderness, swelling and knee extension intact; Absent abrasion, laceration, ecchymosis, deformity, crepitus, dislocation, erythema, effusion, anterior drawer sign, posterior draw sign, pain with valgus, laxity with valgus, pain with varus or laxity with varus Lower leg exam: Present normal inspection, full ROM and Achilles tendon intact; Absent tenderness or Homans' sign Ankle exam: Present normal inspection and full ROM; Absent tenderness Foot/toe exam: Present normal inspection and full ROM; Absent tenderness Neurovascular/Tendon exam: Present normal capillary refill; Absent pulse deficit, motor deficit, sensory deficit, tendon deficit or extremity cold to touch Gait: observed and normal Back Exam Back exam: Present normal inspection; Absent tenderness Neurological Exam Neurological exam: Present alert and oriented X3 Psychiatric Psychiatric exam: Present normal affect and normal mood Skin Skin exam: Present warm, dry, intact and normal color Lymphatic Lymphatic Findings: no adenopathy Medical Decision Making Medical Records Medical records reviewed: No I reviewed the patient's medical records. Ray Inquiry Pt receiving controlled substance: No
[2023-06-09] MEDS: KETOROLAC 60MG/2ML VIAL 60 MG IM (14:33)
[2023-06-09] MEDS: DEXAMETHASONE 4MG/ML 1ML VIAL 8 MG IM (14:33)
[2023-06-09 14:40] VITALS: BP 135/87; PULSE 97; RESP 18; TEMP 37.2; O2SAT 99
== END 2023-06-09 14:57 | disposition home or self-care (01) ==
PROVIDERS: Emergency Provider Nurse Practitioner Family; PCP Internal Medicine
DX: M10.061 Idiopathic gout, right knee (principal); M25.561 Pain in right knee; F17.290 Nicotine dependence, other tobacco product, uncomplicated
CPT/HCPCS: 96372; 99212; 99214; G0463

== ENCOUNTER 2023-06-20 13:55 | Outpatient (CLI) | payer BC, SELFPAY ==
[2023-06-20 13:59] LABS: Adenovirus,PCR Not Detected (NotDetected); Coronavirus 19, PCR Not Detected (NotDetected); Coronavirus 229E Not Detected (NotDetected); Coronavirus NL63 Not Detected (NotDetected); Coronavirus OC43 Not Detected (NotDetected); Coronovirus HKU1,PCR Not Detected (NotDetected); Human Metapneumovirus Not Detected (NotDetected); Influenza A, PCR Not Detected (NotDetected); Influenza AH1, 2009 Not Detected (NotDetected); Influenza AH1, PCR Not Detected (NotDetected); Influenza AH3,PCR Not Detected (NotDetected); Influenza B, PCR Not Detected (NotDetected); Parainfluenza 1, PCR Not Detected (NotDetected); Parainfluenza 2, PCR Not Detected (NotDetected); Parainfluenza 3, PCR Not Detected (NotDetected); Parainfluenza 4, PCR Not Detected (NotDetected); Respiratory Syncytial Virus Not Detected (NotDetected); Rhinovirus/Enterovirus Not Detected (NotDetected)
== END 2023-06-20 23:59 ==
LOC: LAB.DROPOF 13:56
PROVIDERS: PCP Internal Medicine; Visit Provider Internal Medicine
DX: J02.9 Acute pharyngitis, unspecified (principal); R05.9 Cough, unspecified; R50.9 Fever, unspecified; R51.9 Headache, unspecified
CPT/HCPCS: 87070; 87632; 87635

== ENCOUNTER 2023-06-22 14:35 | Outpatient (CLI) | payer BC, SELFPAY ==
--- NOTE | 2023-06-22 14:42 | XR_ITS ---
FINAL REPORT CLINICAL HISTORY: Knee pain, painful lump anterior knee x 1 day, nki FINDINGS: RIGHT KNEE 2 views of the right knee were obtained. There is no acute fracture or dislocation. The joint spaces are intact. There is soft tissue edema anterior to the patella. Small osteophytes are seen of the medial joint. IMPRESSION: No acute fracture Reviewed, Interpreted and Dictated by Milan Garza MD Transcribed by Carly Carson Authenticated and [facility]
== END 2023-06-22 23:59 ==
LOC: RAD 14:36
PROVIDERS: PCP Internal Medicine; Visit Provider Internal Medicine
DX: M25.561 Pain in right knee (principal)
CPT/HCPCS: 73560

== ENCOUNTER 2023-06-23 11:17 | Observation (INO) | payer BC, SELFPAY ==
[2023-06-23 12:50] VITALS: BP 127/75; PULSE 95; RESP 18; TEMP 37.2; O2SAT 98; BMI 38.5
--- NOTE | 2023-06-23 13:09 | ED_ITS ---
Discharge Plan Disposition Patient Disposition: Still a Patient Condition: Good Prescriptions Prescriptions: No Action amlodipine 10 mg tablet 10 mg PO DAILY fluticasone propionate [Allergy Relief (fluticasone)] 50 mcg/actuation spray,suspension 1 spray intranasal BID Qty: 16 2RF Rx Instructions: administer into each nostril losartan 50 mg tablet 50 mg PO DAILY Qty: 30 2RF febuxostat 80 mg tablet 80 mg PO DAILY Qty: 30 2RF prochlorperazine maleate [Compazine] 5 mg tablet 5 mg PO TID PRN (Reason: nausea and vomiting) Qty: 30 0RF metformin 1,000 mg tablet 1,000 mg PO BID Qty: 60 2RF Ozempic 0.25 mg or 0.5 mg (2 mg/3 mL) pen injector 0.25 mg SQ WEEKLY Qty: 3 1RF Rx Instructions: for 4 weeks Referrals Follow up/Referrals: Dharmesh Bravo DO [Primary Care Provider] - See instructions Discharge ED Provider: Dilcia ([facility])Anaid [facility] [place] HPI General Stated complaint: gaut in right knee Mode of Arrival: Ambulatory Source of Information: Patient Limitations: No Limitations Time Seen by Provider: 06/23/23 13:09 Description of Symptoms (Recalled from Triage Doc. by RN): Pt was seen on 06/09/2023 for same thing and was given steroid shot. He seen pcp and had xray done yesterday on right knee. Is complaining of right knee pain hx of gout. HEENT Symptoms (Recalled from RN notes): Yes Resp Symptoms (Recalled from RN notes): No Skin Symptoms (Recalled from RN notes): No MS Symptoms (Recalled from RN notes): No Functional Status (Recalled from RN notes): n/a History of Present Illness Provider Complaint: 38 yr old male presents for rt knee pain. Pt states he was seen on 06/09/2023 for same thing and was given steroid shot and it improved. He seen pcp and had xray done yesterday on right knee. hx of gout. Related Data Home Medications Medication Instructions Recorded Confirmed amlodipine 10 mg tablet 10 mg PO DAILY 04/18/23 06/22/23 Previous Rx's Medication Instructions Recorded febuxostat 80 mg tablet 80 mg PO DAILY #30 tabs 04/04/23 losartan 50 mg tablet 50 mg PO DAILY #30 tabs 04/04/23 metformin 1,000 mg tablet 1,000 mg PO BID #60 tabs 05/02/23 semaglutide 0.25 mg or 0.5 mg (2 0.25 mg (0.368 mL) SQ WEEKLY #3 mL 05/31/23 mg/3 mL) subcutaneous pen injector (Ozempic) prochlorperazine maleate 5 mg 5 mg PO TID PRN nausea and 06/20/23 tablet (Compazine) vomiting #30 tabs fluticasone propionate 50 1 spray intranasal BID #16 grams 06/22/23 mcg/actuation nasal spray,suspension (Allergy Relief (fluticasone)) Allergies Allergy/AdvReac Type Severity Reaction Status Date / Time Penicillins Allergy Unknown Verified 06/23/23 13:07 Sulfa (Sulfonamide Allergy Unknown Verified 06/23/23 13:07 Antibiotics) Worker's Comp Is this a Worker's Comp case?: No [facility] Disclaimer: The information contained in this section may have been updated after the pat ient was seen, as this information can be updated by other users. 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) Smoking Status: Current every day smoker tobacco type: smokeless tobacco alcohol intake: never substance use type: denies use current occupational status: employed Travel in the last 8 weeks: None household members: family housing: house ROS Obtained: Yes All systems reviewed & no additional complaints except as documented Constitutional Constitutional: Reports system reviewed and no additional complaints, except as documented and Denies fever(s) Eyes Eyes: Reports system reviewed and no additional complaints, except as documented ENT Ears, Nose, Mouth, and Throat: Reports system reviewed and no additional complaints, except as documented Cardiovascular Cardiovascular: Reports system reviewed and no additional complaints, except as documented Respiratory Respiratory: Reports system reviewed and no additional complaints, except as documented Gastrointestinal Gastrointestingal: Reports system reviewed and no additional complaints, except as documented Musculoskeletal Musculoskeletal: Reports system reviewed and no additional complaints, except as documented, Reports as per HPI, Reports arthralgias, Reports joint swelling and Reports limited range of motion Integumentary/Breasts Skin/Breast: Reports system reviewed and no additional complaints, except as documented Neurologic Neurologic: Reports system reviewed and no additional complaints, except as documented Endocrine Endocrine: Reports system reviewed and no additional complaints, except as documented Hematologic/Lymphatic Henatologic/Lymphatic: Reports system reviewed and no additional complaints, except as documented Physical Exam General General appearance: alert and in no apparent distress Head Head exam: atraumatic Eye Eye exam: Present normal appearance and PERRL ENT ENT exam: Present normal exam Respiratory Respiratory exam: Present normal lung sounds bilaterally Cardiovascular Cardiovascular exam: Present regular rate and normal rhythm Extremities Exam Extremities exam: Present tenderness, normal capillary refill and joint swelling Expanded Lower Extremity Exam Right: Leg image: 1. tender Neurological Exam Neurological exam: Present alert and oriented X3 Skin Skin exam: Present warm and intact Medical Decision Making Medical Records Medical records reviewed: Yes I reviewed the patient's medical records. Ray Inquiry Pt receiving controlled substance: No Rya was queried for this patient: No Vital Signs: 06/23/23 12:50 Temperature 99 F Temperature Source Oral Pulse Rate [Right Radial] 95 H Respiratory Rate 18 Blood Pressure [Right Arm] 127/75 Blood Pressure Mean [Right Arm] 92 Blood Pressure Source [Right Arm] Automatic Cuff Blood Pressure Position [Right Arm] Sitting 02 Sat by Pulse Oximetry 98 Oxygen Delivery Method Room Air Lab Data 06/23/23 13:14 Orders (Tests/Meds): ORDERS Category Date Time Status CBC Man Diff [Complete Blood Count Man Dif] Stat Lab 06/23/23 13:07 Ordered Uric Acid Stat Lab 06/23/23 13:07 Ordered Medical Decision Narrative: REPORT TO LUIS MIGUEL SENT TO ED FOR EVAL
[2023-06-23 13:26] LABS: MANUAL DIFFERENTIAL MANUAL DIFFERENTIAL (MANUAL DIFF)
[2023-06-23 13:40] LABS: Basophils % 0.2 % (0.1-2.0); Eosinophils # 0.1 K/mm3 (0.0-0.4); Eosinophils % 0.4 % (0.1-12.0); Hematocrit 43.2 % (42.0-52.0); Hemoglobin 13.5 g/dL (14.1-18.0); Lymphocytes # 2.3 K/mm3 (0.7-4.5); Lymphocytes % 13.9 % (10-50); Mean Corpuscular HGB Conc 31.1 g/dL (31.8-35.4); Mean Corpuscular Volume 96.2 fl (80-94); Mean Platelet Volume 8.3 fl (7.4-10.4); Monocytes # 0.7 K/mm3 (0.1-1.0); Monocytes % 4.3 % (1.7-9.3); Neutrophils # 13.2 K/mm3 (1.8-7.8); Neutrophils % 81.2 % (37.0-80.0); Platelet Count 357 K/mm3 (142-424); Red Blood Count 4.49 M/mm3 (4.60-6.20); Red Cell Distribution Width 13.8 % (11.5-17.5); White Blood Count 16.3 K/mm3 (4.8-10.8)
--- NOTE | 2023-06-23 13:50 | PC.NURSE ---
PATIENT SENT TO ER PER Efrain WILCOX APRN FOR FURTHER EVALUATION. REPORT GIVEN TO DR. BOLANOS BY Efarin WILCOX APRN. PATIENT TRANSPORTED TO ER VIA WHEELCHAIR BY [facility] STAFF. FAMILY AT BEDSIDE
--- NOTE | 2023-06-23 13:52 | PC.NURSE ---
Pt arrived to ED room [address] [facility] [facility]
--- NOTE | 2023-06-23 13:54 | PC.NURSE ---
DR BOLANOS AT BEDSIDE
[2023-06-23 13:58] VITALS: BP 158/98; PULSE 104; RESP 20; TEMP 37.2; O2SAT 98; BMI 37.5
[2023-06-23 14:00] LABS: Lymphocytes % 26 % (10-50); Monocytes % 2 % (2-9); Neutrophils % 72 % (42-76); Platelet Estimate Normal; RBC Morphology Normal; Total Cells Counted 100
--- NOTE | 2023-06-23 14:19 | ED_ITS ---
Discharge Plan Disposition Patient Disposition: Still a Patient Condition: Good Prescriptions Prescriptions: No Action amlodipine 10 mg tablet 10 mg PO DAILY Ozempic 0.25 mg or 0.5 mg (2 mg/3 mL) pen injector 0.25 mg SQ WEEKLY Qty: 3 1RF losartan 50 mg tablet 50 mg PO DAILY prochlorperazine maleate [Compazine] 5 mg tablet 5 mg PO TIDP PRN (Reason: nausea and vomiting) metformin 1,000 mg tablet 1,000 mg PO BIDWMEAL fluticasone propionate [Allergy Relief (fluticasone)] 50 mcg/actuation spray,suspension 1 spray intranasal BID Rx Instructions: administer into each nostril febuxostat 80 mg tablet 80 mg PO DAILY Referrals Follow up/Referrals: Dharmesh Bravo DO [Primary Care Provider] - See instructions Clinical Impressions Clinical Impression: Septic arthritis, Otitis media Discharge ED Provider: Grupo Rocha General Adult HPI General Chief complaint: Extremity Problem,Nontraumatic Stated complaint: gaut in right knee Time Seen by Provider: 06/23/23 13:09 Mode of Arrival: Wheelchair Source of Information: Patient Limitations: No Limitations Description of Symptoms (Recalled from ER Triage Doc. by RN): r knee pain since last night. swelling tender warm History of Present Illness HPI narrative: Patient is a 38-year-old male with past medical history of gout on feboxostat who presents emergency department for evaluation of knee pain. Onset was acute, right knee, over the last 24 hours. Patient is unable to bear weight or range the knee due to severe pain. There is warmth, slight redness, obvious swelling. Denies other joint pain. He presented to PCP yesterday where x-ray of the right knee was conducted and was unremarkable. This was preceded by upper respiratory infection with congestion and cough as well as right-sided ear pain. Due to worsening symptoms he presents here for continued evaluation. Related Data Home Medications Medication Instructions Recorded Confirmed amlodipine 10 mg tablet 10 mg PO DAILY High Blood Pressure 04/18/23 06/23/23 febuxostat 80 mg tablet 80 mg PO DAILY Gout 06/23/23 06/23/23 fluticasone propionate 50 1 spray intranasal BID Allergy 06/23/23 06/23/23 mcg/actuation nasal Symptoms spray,suspension (Allergy Relief (fluticasone)) losartan 50 mg tablet 50 mg PO DAILY High Blood Pressure 06/23/23 06/23/23 metformin 1,000 mg tablet 1,000 mg PO BIDWMEAL Diabetes 06/23/23 06/23/23 prochlorperazine maleate 5 mg 5 mg PO TIDP PRN nausea and 06/23/23 06/23/23 tablet (Compazine) vomiting Previous Rx's Medication Instructions Recorded semaglutide 0.25 mg or 0.5 mg (2 0.25 mg (0.368 mL) SQ WEEKLY #3 mL 05/31/23 mg/3 mL) subcutaneous pen injector (Ozempic) Allergies Allergy/AdvReac Type Severity Reaction Status Date / Time Sulfa (Sulfonamide Allergy Unknown Unknown Verified 06/23/23 15:10 Antibiotics) allergy reaction Penicillins AdvReac Mild Diarrhea Verified 06/23/23 15:10 [facility] Disclaimer: The information contained in this section may have been updated after the patient was seen, as this information can be updated by other users. Medical History , REDYE HAND) Diabetes mellitus Hypertension Surgical History , REDYE HAND) History of ankle surgery Family History , REDYE HAND) Diabetes Father Son Grandfather Sister Alcoholism Brother Hyperlipidemia Father Cancer Grandfather Stroke Grandmother Social History , REDYE HAND) Smoking Status: Never smoker alcohol intake: never substance use type: denies use current occupational status: employed Travel in the last 8 weeks: None household members: family housing: house ROS Obtained: Yes Systems reviewed as appropriate & no additional complaints except as documented Physical Exam General General appearance: alert and in no apparent distress Head Head exam: atraumatic and normocephalic Eye Eye exam: Present PERRL ENT ENT exam: Present mucous membranes moist and other (Purulent right-sided middle ear effusion.) Neck Neck exam: Present normal inspection Chest Chest inspection: Present normal inspection and symmetric chest wall rise Respiratory Respiratory exam: Present normal lung sounds bilaterally; Absent respiratory distress Cardiovascular Cardiovascular exam: Present normal rhythm and tachycardia Abdominal Exam Abdominal exam: Present soft; Absent tenderness Extremities Exam Extremities exam: Present other (Erythematous edematous right knee, severely limited active and passive range of motion secondary to pain. Tender.) Neurological Exam Neurological exam: Present alert Psychiatric Psychiatric exam: Present normal affect Skin Skin exam: Present warm and dry Medical Decision Making Ray Inquiry Pt receiving controlled substance: No Vital Signs: 06/23/23 12:50 06/23/23 13:58 Temperature 99 F 98.9 F Temperature Source Oral Oral Pulse Rate [Right Radial] 95 H 104 H Respiratory Rate 18 20 Blood Pressure [Right Arm] 127/75 158/98 H Blood Pressure Mean [Right Arm] 92 118 Blood Pressure Source [Right Arm] Automatic Cuff Blood Pressure Position [Right Arm] Sitting 02 Sat by Pulse Oximetry 98 98 Oxygen Delivery Method Room Air Room Air Lab Data Lab Results 06/23/23 13:14: WBC 16.3 H, RBC 4.49 L, Hgb 13.5 L, Hct 43.2, MCV 96.2 H, MCH 30.0, MCHC 31.1 L, RDW 13.8, Plt Count 357, MPV 8.3, Neut % (Auto) 81.2 H, Lymph % (Auto) 13.9, [place] % (Auto) 4.3, Eos % (Auto) 0.4, Baso % (Auto) 0.2, Neut # (Auto) 13.2 H, Lymph # (Auto) 2.3, [place] # (Auto) 0.7, Eos # (Auto) 0.1, Baso # (Auto) 0.0, Total Counted 100, Neutrophils % (Manual) 72, Lymphocytes % (Manual) 26, Monocytes % (Manual) 2, Platelet Estimate Normal, RBC Morphology Normal, Ur ic Acid 5.0 06/23/23 14:00: ESR 43 H, Sodium 132 L, Potassium 4.5, Chloride 98, Carbon Dioxide 25, Anion Gap 13.5, BUN 13, Creatinine 1.00, Estimated Creat Clear 195, Estimated GFR 84, Est GFR ( Amer) 102, Glucose 131 H, Calcium 9.4, Total Bilirubin 1.4 H, AST 60 H, ALT 99 H, Alkaline Phosphatase 129 H, C-Reactive Protein 296.4 H, Total Protein 8.7 H, Albumin 4.4, Globulin 4.3 H, Albumin/Globulin Ratio 1.0 L 06/23/23 13:14 06/23/23 14:00 Orders (Tests/Meds): ED MEDICATIONS Generic Name Dose Route Start Last Admin Trade Name Freq PRN Reason Stop Dose Admin Piperacillin Sod/Tazobactam 50 mls @ 100 mls/hr 06/23/23 15:00 Sod 3.375 gm/ Sodium Chloride IV 07/03/23 14:59 Q6H ARAM Vancomycin HCl 2,000 mg/ 250 mls @ 125 mls/hr 06/23/23 15:30 Sodium Chloride IV 07/03/23 15:29 Q8H ARAM Ketorolac Tromethamine 30 mg 06/23/23 14:53 Ketorolac 30mg/Ml Vial IV 06/28/23 14:52 Q6HP PRN Moderate Pain (4-6) Morphine Sulfate 4 mg 06/23/23 14:53 Morphine 4mg/Ml Syringe IV 07/23/23 14:52 Q4HP PRN Severe Pain (7-10) Sodium Chloride 10 ml 06/23/23 15:05 Sodium Chloride 0.9% 10ml Flush Syringe IV 07/23/23 15:04 NEEDED PRN Maintain IV Site Discontinued Medications Generic Name Dose Route Start Last Admin Trade Name Freq PRN Reason Stop Dose Admin Acetaminophen 1,000 mg 06/23/23 14:18 06/23/23 14:53 Acetaminophen 500mg Tab PO 06/23/23 14:19 1,000 mg ONCE ONE Administration Ketorolac Tromethamine 30 mg 06/23/23 14:18 06/23/23 14:53 Ketorolac 30mg/Ml Vial IV 06/23/23 14:19 30 mg ONCE ONE Administration Lidocaine/Epinephrine 10 ml 06/23/23 14:34 06/23/23 14:53 Lidocaine 1% W/Epi 1:100,000 20ml Vial SQ 06/23/23 14:35 10 ml ONCE ONE Administration Miscellaneous 1 each 06/23/23 15:00 Vancomycin Consult Request NOTAPPLIC 07/23/23 14:59 CONSULT PH[facility]ACY [facility] Morphine Sulfate 4 mg 06/23/23 14:18 06/23/23 14:53 Morphine 4mg/Ml Syringe IV 06/23/23 14:19 4 mg ONCE ONE Administration Ondansetron HCl 4 mg 06/23/23 14:18 06/23/23 14:53 Ondansetron 4mg/2ml Vial IV 06/23/23 14:19 4 mg ONCE ONE Administration ORDERS Category Date Time Status CBC Man Diff [Complete Blood Count Man Dif] Stat Lab 06/23/23 13:14 Completed CMP [Comprehensive Metabolic Panel] Stat Lab 06/23/23 14:00 Completed CRP [C-Reactive Protein] AMLAB Lab 06/24/23 06:00 Ordered CRP [C-Reactive Protein] Stat Lab 06/23/23 14:[address] Synovial w/ Crystals Stat Lab 06/23/23 14:13 Ordered Complete Blood Count Auto Diff AMLAB Lab 06/24/23 06:00 Ordered Comprehensive Metabolic Panel AMLAB Lab 06/24/23 06:00 Ordered ESR [Erythrocyte Sedimentation Rate] Stat Lab 06/23/23 14:00 Completed Hemoglobin A1C Stat Lab 06/23/23 14:00 Received Magnesium AMLAB Lab 06/24/23 06:00 Ordered Procalcitonin DAILY Lab 06/24/23 06:00 Ordered Procalcitonin Routine Lab 06/23/23 14:00 Received TSH [Thyroid Stimulating Hormone] AMLAB Lab 06/24/23 06:00 Ordered Uric Acid AMLAB Lab 06/24/23 06:00 Ordered Uric Acid Stat Lab 06/23/23 13:14 Completed Blood Culture Stat Micro 06/23/23 14:18 Ordered Body Fluid Cult & Gram Stain Stat Micro 06/23/23 14:13 Ordered Medical Decision Narrative: In summary patient is a 38-year-old male with past medical history described ab ove who presents emergency department for evaluation of severe knee pain in the setting of gout. Patient is hemodynamically stable nontoxic-appearing upon arrival, slight tachycardia heart rate 104. Differential includes gouty arthritis, septic arthritis, among others. Workup will be conducted with hematologic labs, blood cultures x 2, viral swab. Arthrocentesis will be obtained for which cell count and differential and crystal analysis will be sent to , Gram stain and culture will be sent to [facility]. Initial interventions include crystalloid bolus, multimodal pain control. Initial workup reviewed by me, hematologic labs remarkable for leukocytosis 16.3, very high CRP, mildly elevated transaminases that are nonactionable. Given that patient meets sepsis criteria after cultures were obtained and arthrocentesis was performed broad- spectrum antibiotics were initiated with vancomycin and Zosyn (patient only has diarrhea with penicillins). Written order form for synovial cell count with differential as well as crystal analysis was filled out. Specimen was prepared in laboratory and transported to . Once resulted at they will fax results of arthrocentesis to [facility]. The case was discussed with [facility] medicine they will will admit the patient their service for continued evaluation at this time. Procedure: Procedure performed by Jonathan Felix assisted by Grupo Rocha. Most palpable area of effusion was determined to be 2:00 about the patella on the right knee. Patient was numbed with 1% lidocaine with epinephrine. Using a 18- gauge spinal needle and sterile technique was advanced into the synovial space and approximately 20 cc of straw-colored fluid was aspirated. [place] was placed in purple top, remainder was placed in a sterile specimen cup. Patient tolerated procedure well. There were no immediate complications. Critical Care Critical Care Time Critical Care Time: No
[2023-06-23 14:30] LABS: Chloride 98 mmol/L (98-107)
[2023-06-23 14:31] LABS: Potassium 4.5 mmoL/L (3.5-5.1); Sodium 132 mmol/L (136-145)
[2023-06-23 14:33] LABS: Alanine Aminotransferase 99 U/L (12-78); Aspartate Amino Transferase 60 U/L (17-59); Blood Urea Nitrogen 13 mg/dl (9-20); Creatinine Clearance Estimated 195 mL/min (50-200); Estimated Glomerular Filt Rate 84 ml/min (>60); GFR (African American) 102 ML/MIN (>60)
[2023-06-23 14:34] LABS: Albumin Level 4.4 g/dl (3.5-5.0); Alkaline Phosphatase 129 U/L (38-126); Anion Gap 13.5 mEq/L (5-15); Bilirubin,Total 1.4 mg/dl (0.2-1.3); Calcium 9.4 mg/dl (8.4-10.2); Carbon Dioxide 25 mmol/L (22.0-30.0); Globulin 4.3 g/dL (1.3-3.2); Glucose 131 mg/dl (74-100); Total Protein,Serum 8.7 g/dl (6.3-8.2)
[2023-06-23 14:40] LABS: C-Reactive Protein 296.4 mg/L (0-4)
--- NOTE | 2023-06-23 14:46 | PC.NURSE ---
PT ASSISTED INTO BED AND BLANKET PROVIDED. CALL LIGHT WITHIN REACH. PT AND FAMILY UPDATED ON POC
--- NOTE | 2023-06-23 14:51 | PC.NURSE ---
DR BOLANOS SPEAKING WITH DR RUSS FOR ADMISSION
[2023-06-23] MEDS: ONDANSETRON 4MG/2ML VIAL 4 MG IV (14:53)
[2023-06-23] MEDS: KETOROLAC 30MG/ML VIAL 30 MG IV (14:53)
[2023-06-23] MEDS: ACETAMINOPHEN 500MG TAB 1000 MG PO (14:53)
[2023-06-23] MEDS: MORPHINE 4MG/ML SYRINGE 4 MG IV (14:53)
[2023-06-23] MEDS: LIDOCAINE 1% W/EPI 1:100,000 20ML VIAL 10 ML SQ (14:53)
--- NOTE | 2023-06-23 14:59 | EXP.HP ---
History of Present Illness *Admission Date: 06/23/23 *Reason for visit:: Inability to bear weight, right painful knee. *History of present illness: Mr. Austin is a 38yo M with hx of DM, HTN, obesity, gout. He presented to the ER with complaint of tight knee pain that has progressed over the past 24-36hrs. He is unable to bear weight, has had some chills. Reports a preceding URI with congestion for the past 5+days. still having some right ear pain. On evaluation in the ER he was noted to have a red, swollen, hot right knee. Joint tender to palpation. He denies other joint pain, has a Hx of gout in his feet. He presented to his PCP yesterday where x-ray of the right knee was obtained with no significant effusion or bony abnormality. Labs concerning for leukocytosis, elevated inflammatory markers. Arthrocentesis performed in the ER and Orthopedics consulted. Due to risk of septic arthritis vs Gout flare, medicine consulted to admit patient and antibiotics were initiated. On evaluation, he feels some minor relief after removal of some fluid. Has had some other sick contacts at home. Still complaining of right ear pain and fullness. Denies any trauma or injury to his knee. [facility] Disclaimer: The information contained in this section may have been updated after the patient was seen, as this information can be updated by other users. Medical History Diabetes mellitus Hypertension Surgical History History of ankle surgery Family History Diabetes Father Son Grandfather Sister Alcoholism Brother Hyperlipidemia Father Cancer Grandfather Stroke Grandmother Social History Smoking Status: Never smoker alcohol intake: never substance use type: denies use current occupational status: employed Travel in the last 8 weeks: None household members: family housing: house Review of Systems Review of Systems Review of systems (narrative): 14 point review of systems performed, pertinent positives and negatives as per HPI *Neurologic Neurologic: Reports system reviewed and no additional complaints, except as documented Meds Home Medications and Allergies Home Medications Medication Instructions Recorded Confirmed Type amlodipine 10 mg tablet 10 mg PO DAILY High Blood Pressure 04/18/23 06/23/23 History semaglutide 0.25 mg or 0.5 mg (2 0.25 mg (0.368 mL) SQ WEEKLY #3 mL 05/31/23 06/23/23 Rx mg/3 mL) subcutaneous pen injector (Ozempic) febuxostat 80 mg tablet 80 mg PO DAILY Gout 06/23/23 06/23/23 History fluticasone propionate 50 1 spray intranasal BID Allergy 06/23/23 06/23/23 History mcg/actuation nasal Symptoms spray,suspension (Allergy Relief (fluticasone)) losartan 50 mg tablet 50 mg PO DAILY High Blood Pressure 06/23/23 06/23/23 History metformin 1,000 mg tablet 1,000 mg PO BIDWMEAL Diabetes 06/23/23 06/23/23 History prochlorperazine maleate 5 mg 5 mg PO TIDP PRN nausea and 06/23/23 06/23/23 History tablet (Compazine) vomiting New Prescriptions to Start Prescriptions: Allergies Allergy/AdvReac Type Severity Reaction Status Date / Time Sulfa (Sulfonamide Allergy Unknown Unknown Verified 06/23/23 15:10 Antibiotics) allergy reaction Penicillins AdvReac Mild Diarrhea Verified 06/23/23 15:10 Exam Data for Last 24 hours Vital signs and Labs for Last 24 Hours: Temp Pulse Resp BP Pulse Ox O2 Del Method 98.9 F 104 H 20 158/98 H 98 Room Air 06/23/23 13:58 06/23/23 13:58 06/23/23 13:58 06/23/23 13:58 06/23/23 13:58 06/23/23 13:58 Laboratory Results - last 24 hr 06/23/23 13:14: WBC 16.3 H, RBC 4.49 L, Hgb 13.5 L, Hct 43.2, MCV 96.2 H, MCH 30.0, MCHC 31.1 L, RDW 13.8, Plt Count 357, MPV 8.3, Neut % (Auto) 81.2 H, Lymph % (Auto) 13.9, [place] % (Auto) 4.3, Eos % (Auto) 0.4, Baso % (Auto) 0.2, Neut # (Auto) 13.2 H, Lymph # (Auto) 2.3, [place] # (Auto) 0.7, Eos # (Auto) 0.1, Baso # (Auto) 0.0, Total Counted 100, Neutrophils % (Manual) 72, Lymphocytes % (Manual) 26, Monocytes % (Manual) 2, Platelet Estimate Normal, RBC Morphology Normal, Uric Acid 5.0 06/23/23 14:00: Sodium 132 L, Potassium 4.5, Chloride 98, Carbon Dioxide 25, Anion Gap 13.5, BUN 13, Creatinine 1.00, Estimated Creat Clear 195, Estimated GFR 84, Est GFR ( Amer) 102, Glucose 131 H, Calcium 9.4, Total Bilirubin 1.4 H, AST 60 H, ALT 99 H, Alkaline Phosphatase 129 H, C-Reactive Protein 296.4 H, Total Protein 8.7 H, Albumin 4.4, Globulin 4.3 H, Albumin/Globulin Ratio 1.0 L I & O for Last 24 hours: Intake & Output 06/20/23 06/21/23 06/22/23 06/23/23 23:59 23:59 23:59 23:59 Weight 136.078 kg Constitutional Constitutional: no acute distress, obese and cooperative *Routine HEENT Exam Head: Present normocephalic Eye: Present EOMI and PERRL ENT: Present mucous membranes moist *Routine Neck Exam Neck: Present supple; Absent lymphadenopathy *Routine Respiratory Exam Respiratory: Present CTA bilaterally; Absent rhonchi, wheezes or crackles *Routine Cardiovascular Exam Cardiovascular: Present RRR *Routine Abdominal Exam Abdominal: Present soft and normoactive bowel sounds; Absent tenderness *Routine Rectal Exam Rectal:: deferred *Routine Genitalia Exam Genitalia:: deferred *Routine Extremities Exam Extremities: Absent cyanosis, clubbing or edema Comments: right knee warm, moderately tender, mild fluctuance. Unable to bear weight due to pain *Routine Skin Exam Skin: Present warm; Absent rash *Routine Neurological Exam Neurological: Present alert, oriented X3 and moving all extremities; Absent altered mental status Assessment and Plan *Assessment and plan (1) Septic arthritis: Status: Acute Category: Medical Code(s): M00.9 - Pyogenic arthritis, unspecified (2) Knee pain, right: Status: Acute Category: Medical Code(s): M25.561 - Pain in right knee (3) Diabetes mellitus: Status: Chronic Qualifiers: Diabetes mellitus complication status: without complication Diabetes mellitus terminal press operator insulin use: without terminal press operator use Diabetes mellitus type: type 2 Qualified Code(s): E11.9 - Type 2 diabetes mellitus without complications Category: Medical Code(s): E11.9 - Type 2 diabetes mellitus without complications (4) Hypertension: Status: Chronic Qualifiers: Hypertension type: primary hypertension Qualified Code(s): I10 - Essential (primary) hypertension Category: Medical Code(s): I10 - Essential (primary) hypertension (5) Gout: Status: Acute Qualifiers: Chronicity: acute Gout etiology: unspecified cause Gout site: knee Laterality: left Qualified Code(s): M10.9 - Gout, unspecified Category: Medical Code(s): M10.9 - Gout, unspecified (6) Class 2 obesity: Status: Chronic Category: Medical Code(s): E66.9 - Obesity, unspecified (7) Viral illness: Status: Acute Category: Medical Code(s): B34.9 - Viral infection, unspecified Plan 38-year-old male with history of diabetes, hypertension, obesity, gout. Presented to the ER with right knee pain, inability to bear weight. Worsening swelling since seeing PCP yesterday. White cell count elevated at 16.3, inflammatory markers elevated, inability to bear weight, uric acid 5.0. Highly suspicious for septic arthritis with 3 of 4 Robinson criteria, 93% probability. Discussed case with ER physician, request admission for IV antibiotics, orthopedics evaluation, and continued medical management. Medicine agreed to admit. Problems addressed as follows: Suspected septic arthritis Right knee pain - Arthrocentesis performed in the ER. Awaiting fluid studies. - Initiated on empiric antibiotics with vancomycin and Zosyn. Monitoring for toxicity - orthopedics consulted and assisting with care. Decision for washout pending fluid studies with cell count and crystal analysis. - Meeting 3 of 4 Robinson criteria, 93% probability of septic arthritis. (Nonweightbearing, ESR greater than 40, white cell count greater than 12 K) -White cell count 16.3, ESR 43, CRP 296. Repeat CBC, CMP, magnesium and inflammatory markers ordered for the morning. Pro-Edgar ordered and pending -Toradol and IV morphine for pain, monitor for toxicity Virla URI sx: Covid and flu panel pending Diabetes: A1c in March 7.3, repeat today 6.8; on semaglutide and metformin. continue Metformin during admission. Will initiate sliding scale insulin with fingersticks ACHS. Glucose 131 on presentation. TSH pending Hypertension: Blood pressure elevated on admission. Continue amlodipine, losartan per home regimen. Gout: Uric acid 5.0. Continue febuxostat 80 mg daily Full code Clear liquid diet, n.p.o. at midnight Holding anticoagulation pending orthopedic procedure to knee
[2023-06-23 15:00] LABS: Erythrocyte Sedimentation Rate 43 mm/hr (0-15)
--- NOTE | 2023-06-23 15:01 | P.CONPHA_ITS ---
Pharmacy Consult Date: 06/23/23 Time: 15:01 Referring provider: DR. BOLANOS Reason for Consult:: VANCOMYCIN DOSING Allergies Allergy/AdvReac Type Severity Reaction Status Date / Time Penicillins Allergy Unknown Verified 06/23/23 13:07 Sulfa (Sulfonamide Allergy Unknown Verified 06/23/23 13:07 Antibiotics) Home Medications Medication Instructions Recorded Confirmed Type febuxostat 80 mg tablet 80 mg PO DAILY #30 tabs 04/04/23 06/22/23 Rx losartan 50 mg tablet 50 mg PO DAILY #30 tabs 04/04/23 06/22/23 Rx amlodipine 10 mg tablet 10 mg PO DAILY 04/18/23 06/22/23 History metformin 1,000 mg tablet 1,000 mg PO BID #60 tabs 05/02/23 06/22/23 Rx semaglutide 0.25 mg or 0.5 mg (2 0.25 mg (0.368 mL) SQ WEEKLY #3 mL 05/31/23 06/22/23 Rx mg/3 mL) subcutaneous pen injector (Ozempic) prochlorperazine maleate 5 mg 5 mg PO TID PRN nausea and 06/20/23 06/22/23 Rx tablet (Compazine) vomiting #30 tabs fluticasone propionate 50 1 spray intranasal BID #16 grams 06/22/23 06/22/23 Rx mcg/actuation nasal spray,suspension (Allergy Relief (fluticasone)) New Prescriptions to Start Prescriptions: Height: 1.91 m Weight: 136.078 kg Laboratory Results:: Laboratory Results - last 24 hr 06/23/23 13:14: WBC 16.3 H, RBC 4.49 L, Hgb 13.5 L, Hct 43.2, MCV 96.2 H, MCH 30.0, MCHC 31.1 L, RDW 13.8, Plt Count 357, MPV 8.3, Neut % (Auto) 81.2 H, Lymph % (Auto) 13.9, [place] % (Auto) 4.3, Eos % (Auto) 0.4, Baso % (Auto) 0.2, Neut # (Auto) 13.2 H, Lymph # (Auto) 2.3, [place] # (Auto) 0.7, Eos # (Auto) 0.1, Baso # (Auto) 0.0, Total Counted 100, Neutrophils % (Manual) 72, Lymphocytes % (Manual) 26, Monocytes % (Manual) 2, Platelet Estimate Normal, RBC Morphology Normal, Uric Acid 5.0 06/23/23 14:00: ESR 43 H, Sodium 132 L, Potassium 4.5, Chloride 98, Carbon Dioxide 25, Anion Gap 13.5, BUN 13, Creatinine 1.00, Estimated Creat Clear 195, Estimated GFR 84, Est GFR ( Amer) 102, Glucose 131 H, Calcium 9.4, Total Bilirubin 1.4 H, AST 60 H, ALT 99 H, Alkaline Phosphatase 129 H, C-Reactive Protein 296.4 H, Total Protein 8.7 H, Albumin 4.4, Globulin 4.3 H, Albumin/Globulin Ratio 1.0 L Medical History: Medical History (Updated 06/23/23 @ 15:01 by Mike Almaraz MD) Diabetes mellitus Hypertension Assessment and Plan Assessment and plan all Dx Assessment and Plan for all problems:: Pharmacokinetic dosing service Objective: Patient: Floor: Age: 38 yo Serum creatinine: 1.00 mg/dL Height: 75.2 Inches Weight (kg): 136 Assessment: IBW (kg): 84.96 Dosing wt(kg): 136 Estimated Creatinine clearance (ml/min): 121.5 CRCL method: Cockcroft and Gault using ibw(default). Drug selected: Vancomycin Loading dose (mg): Vd (liters): 108.8 (factor used: 0.8 L/kg) Isaac (hr-1): 0.105 Half life (hrs): 6.60 CLvanco=?? 11.424 L/hr Recommended dose: 2000 mg Interval: 8 hrs Infusion time (hrs): 2.0 Predicted peak (mcg/mL): 29.2 Predicted trough (mcg/mL): 15.55 Total body weight is being used for vancomycin dosing. Recommendations: Give Vancomycin 2000 mg q 8 hrs with an expected Cpeak of 29.2 mcg/ml and an expected Ctrough of 15.55 mcg/ml AUC 0-24 /LAMAR Data: LAMAR 0.5 mcg/mL:?? AUC/LAMAR:? 1050.4 LAMAR 1.0 mcg/mL:?? AUC/LAMAR:? 525.2 --------- LAMAR 1.5 mcg/mL:?? AUC/LAMAR:? 350.1 LAMAR 2.0 mcg/mL:?? AUC/LAMAR:? 262.6 Thank you for the consult, will continue to follow. -BREANNA RENTERIA, RAMAD
--- NOTE | 2023-06-23 15:12 | HMH.PHAINT1 ---
Pharmacy Intervention Comments: MEDICATION RECONCILIATION COMPLETED ON PATIENT USING EXTERNAL FILL HISTORY FROM PHARMACY. -BREANNA RENTERIA, RAMAD
--- NOTE | 2023-06-23 15:12 | PC.NURSE ---
SPOKE WITH DR RUSS, REQUESTS DR SMITH BE NOTIFIED OF RESULTS FROM KNEE ASPIRATION
[2023-06-23 15:19] LABS: Hemoglobin A1C 6.8 % (4.0-6.0)
--- NOTE | 2023-06-23 15:36 | PC.NURSE ---
WILDLIFE BIOLOGY TECHNICIAN NOTIFIED OF ADMISSION
[2023-06-23 15:41] LABS: Procalcitonin 0.228 ng/mL (0.0-2.0)
[2023-06-23 15:44] LABS: Influenza A, PCR Not Detected (NotDetected); Influenza B, PCR Not Detected (NotDetected)
[2023-06-23] MEDS: PIPERACILLIN/TAZO 3.375 GM in 0.9 % SODIUM CHLORIDE 50 ML IV (15:45)
--- NOTE | 2023-06-23 15:52 | PC.NURSE ---
DR RUSS AT BEDSIDE TO ASSESS PT
[2023-06-23 15:56] VITALS: BP 112/73; PULSE 71; O2SAT 91
--- NOTE | 2023-06-23 16:14 | PC.NURSE ---
Report called to DAMIAN Chaudhari.
[2023-06-23 16:25] LABS: Coronavirus 19, PCR Detected (NotDetected)
[2023-06-23 16:30] VITALS: BP 112/73; PULSE 71; RESP 20; TEMP 37.2; O2SAT 98
[2023-06-23 16:37] VITALS: BP 117/75; PULSE 64; RESP 18; TEMP 36.8; O2SAT 92; BMI 37.2
[2023-06-23] MEDS: VANCOMYCIN HCL 2,000 MG in 0.9 % SODIUM CHLORIDE 250 ML 125 MG IV (16:45)
[2023-06-23] MEDS: PATIENT'S OWN HOME MEDICATION (Metformin 1,000 mg tablet) 1000 EACH PO (18:36)
--- NOTE | 2023-06-23 18:40 | PC.NURSE ---
Pt placed in contact and airborne precautions. States he has been feeling bad all week. States he tested negative on sunday. He is resting well in bed. No complaints about his knee at this time. Bandaid to (R) knee. Medications administered per jun. Call light within reach.
--- NOTE | 2023-06-23 19:38 | EXP.ORTH.CON ---
History of Present Illness *Admission Date: 06/23/23 *History of present illness: Mr. Austin is a 38yo M with hx of DM, HTN, obesity, gout. He presented to the ER with complaint of tight knee pain that has progressed over the past 24-36hrs. He is unable to bear weight, has had some chills. Reports a preceding URI with congestion for the past 5+days. still having some right ear pain. On evaluation in the ER he was noted to have a red, swollen, hot right knee. Joint tender to palpation. He denies other joint pain, has a Hx of gout in his feet. He presented to his PCP yesterday where x-ray of the right knee was obtained with no significant effusion or bony abnormality. Labs concerning for leukocytosis, elevated inflammatory markers. Arthrocentesis performed in the ER and Orthopedics consulted. Due to risk of septic arthritis vs Gout flare, medicine consulted to admit patient and antibiotics were initiated. On evaluation, he feels some minor relief after removal of some fluid. Has had some other sick contacts at home. Still complaining of right ear pain and fullness. Denies any trauma or injury to his knee. I spoke with him in regards to previous gout attacks. He feels like this pain in his knee is similar to the previous gout attacks that he had. Of note he did test positive for COVID. His inflammatory markers are high. Procalcitonin is normal limits. [facility] Disclaimer: The information contained in this section may have been updated after the patient was seen, as this information can be updated by other users. Medical History Diabetes mellitus Hypertension Surgical History History of ankle surgery Family History Diabetes Father Son Grandfather Sister Alcoholism Brother Hyperlipidemia Father Cancer Grandfather Stroke Grandmother Social History Smoking Status: Never smoker alcohol intake: never substance use type: denies use current occupational status: employed Travel in the last 8 weeks: None household members: family housing: house Review of Systems *Neurologic Neurologic: Reports system reviewed and no additional complaints, except as documented Meds Home Medications and Allergies Home Medications Medication Instructions Recorded Confirmed Type amlodipine 10 mg tablet 10 mg PO DAILY High Blood Pressure 04/18/23 06/23/23 History semaglutide 0.25 mg or 0.5 mg (2 0.25 mg (0.368 mL) SQ WEEKLY #3 mL 05/31/23 06/23/23 Rx mg/3 mL) subcutaneous pen injector (Ozempic) febuxostat 80 mg tablet 80 mg PO DAILY Gout 06/23/23 06/23/23 History fluticasone propionate 50 1 spray intranasal BID Allergy 06/23/23 06/23/23 History mcg/actuation nasal Symptoms spray,suspension (Allergy Relief (fluticasone)) losartan 50 mg tablet 50 mg PO DAILY High Blood Pressure 06/23/23 06/23/23 History metformin 1,000 mg tablet 1,000 mg PO BIDWMEAL Diabetes 06/23/23 06/23/23 History prochlorperazine maleate 5 mg 5 mg PO TIDP PRN nausea and 06/23/23 06/23/23 History tablet (Compazine) vomiting New Prescriptions to Start Prescriptions: Allergies Allergy/AdvReac Type Severity Reaction Status Date / Time Sulfa (Sulfonamide Allergy Unknown Unknown Verified 06/23/23 15:10 Antibiotics) allergy reaction Penicillins AdvReac Mild Diarrhea Verified 06/23/23 15:10 Ortho Exam (Inpt) Vital signs and Labs for Last 24 Hours: Temp Pulse Resp BP Pulse Ox O2 Del Method 98.2 F 64 18 117/75 92 L Room Air 06/23/23 16:37 06/23/23 16:37 06/23/23 16:37 06/23/23 16:37 06/23/23 16:37 06/23/23 18:38 Laboratory Results - last 24 hr 06/23/23 13:14: WBC 16.3 H, RBC 4.49 L, Hgb 13.5 L, Hct 43.2, MCV 96.2 H, MCH 30.0, MCHC 31.1 L, RDW 13.8, Plt Count 357, MPV 8.3, Neut % (Auto) 81.2 H, Lymph % (Auto) 13.9, [place] % (Auto) 4.3, Eos % (Auto) 0.4, Baso % (Auto) 0.2, Neut # (Auto) 13.2 H, Lymph # (Auto) 2.3, [place] # (Auto) 0.7, Eos # (Auto) 0.1, Baso # (Auto) 0.0, Total Counted 100, Neutrophils % (Manual) 72, Lymphocytes % (Manual) 26, Monocytes % (Manual) 2, Platelet Estimate Normal, RBC Morphology Normal, Uric Acid 5.0 06/23/23 14:00: ESR 43 H, Sodium 132 L, Potassium 4.5, Chloride 98, Carbon Dioxide 25, Anion Gap 13.5, BUN 13, Creatinine 1.00, Estimated Creat Clear 195, Estimated GFR 84, Est GFR ( Amer) 102, Glucose 131 H, Hemoglobin A1c 6.8 H, Calcium 9.4, Total Bilirubin 1.4 H, AST 60 H, ALT 99 H, Alkaline Phosphatase 129 H, C-Reactive Protein 296.4 H, Total Protein 8.7 H, Albumin 4.4, Globulin 4.3 H, Albumin/Globulin Ratio 1.0 L, Procalcitonin 0.228 06/23/23 15:39: SARS-CoV-2 (PCR) Detected A, Influenza A Untype (PCR) Not detected, Influenza Type B (PCR) Not detected I & O for Labs for Last 24 Hours: Intake & Output 06/20/23 06/21/23 06/22/23 06/23/23 23:59 23:59 23:59 23:59 Intake Total 360 / 360 Output Total 0 / 0 Balance 360 / 360 Weight 299 lb 7 oz Comment:: Right knee: Skin is intact sensations intact. There is some mild warmth of the right knee. There is not a large effusion. There are some irritability with flexion of the knee. I reviewed the x-rays of his right knee shows mild degenerative changes no evidence of chondrocalcinosis. No evidence of end-stage osteoarthritis. Results Labs 06/23/23 13:14 06/23/23 14:00 Labs: Abnormal lab results 06/23/23 06/23/23 06/23/23 Range/Units 13:14 14:00 15:39 WBC 16.3 H (4.8-10.8) K/mm3 RBC 4.49 L (4.60-6.20) M/mm3 Hgb 13.5 L (14.1-18.0) g/dL MCV 96.2 H (80-94) fl MCHC 31.1 L (31.8-35.4) g/dL Neut % (Auto) 81.2 H (37.0-80.0) % Neut # (Auto) 13.2 H (1.8-7.8) K/mm3 ESR 43 H (0-15) mm/hr Sodium 132 L (136-145) mmol/L Glucose 131 H (74-100) mg/dl Hemoglobin A1c 6.8 H (4.0-6.0) % Total Bilirubin 1.4 H (0.2-1.3) mg/dl AST 60 H (17-59) U/L ALT 99 H (12-78) U/L Alkaline Phosphatase 129 H (38-126) U/L C-Reactive Protein 296.4 H (0-4) mg/L Total Protein 8.7 H (6.3-8.2) g/dl Globulin 4.3 H (1.3-3.2) g/dL Albumin/Globulin Ratio 1.0 L (1.1-1.8) SARS-CoV-2 (PCR) Detected A (NotDetected) H & H 06/23/23 Range/Units 13:14 Hgb 13.5 L (14.1-18.0) g/dL Hct 43.2 (42.0-52.0) % All other labs normal. Assessment and Plan *Assessment and plan (1) Effusion, right knee: Status: Acute Category: Medical Code(s): M25.461 - Effusion, right knee Plan Based on physical exam findings today as well as history of gout attack and current symptomatology of the knee there is a lower probability of septic arthritis. However joint arthrocentesis was performed. This was sent to [facility] for cell count with differential as well as Gram stain and culture as well as identification of crystals. Obviously any identification of crystals would confirm gout suspicion. Cell count with differential will also guide possible evidence of septic arthritis. No good source or trauma to increase predisposition to septic arthritis however we will await the cell count and Gram stain and crystal results and make clinical decisions based on this. I discussed with him the possible need of having knee arthroscopy to address a septic arthritis if that were present. He is agreeable to present with what ever steps necessary in order to get resolution. If the labs come back negative for septic arthritis would need to be treated for acute gout flare.
[2023-06-23 20:00] VITALS: BP 132/74; PULSE 72; RESP 20; TEMP 36.7; O2SAT 96
[2023-06-23 20:46] LABS: Clarity,Fluid CLOUDY; Color,Fluid YELLOW; Nucleated cells, Syn. Fluid 14482; RBC,Fluid 58
[2023-06-23 20:53] LABS: Lymphocytes,Fluid 0 u/L; Macrophages,Fluid 435 u/L; Polys,Fluid 14048 u/L
[2023-06-23 20:54] LABS: Eosinophils,Fluid 0 u/L; Lining Cells, Synovial Fld 0 u/L
[2023-06-23 20:54] LABS: POC Glucose,Bedside 108 (70-110)
[2023-06-23] MEDS: METHYLPREDNISOLONE SOD SUCC 40MG VIAL 20 MG IV (20:56)
[2023-06-23] MEDS: COLCHICINE 0.6MG TABLET 1.19999999999999996 MG PO (20:56)
[2023-06-23] MEDS: COLCHICINE 0.6MG TABLET 0.599999999999999978 MG PO (22:34)
[2023-06-24] VITALS: BP 126/58; PULSE 82; RESP 20; TEMP 38.2; O2SAT 92
[2023-06-24 04:00] VITALS: BP 135/73; PULSE 73; RESP 18; TEMP 37.2; O2SAT 92; BMI 36.9
[2023-06-24 06:47] LABS: POC Glucose,Bedside 144 (70-110)
[2023-06-24 07:59] LABS: C-Reactive Protein 295.1 mg/L (0-4)
[2023-06-24 08:00] VITALS: BP 136/78; PULSE 79; RESP 20; TEMP 37.2; O2SAT 93
[2023-06-24 08:15] LABS: Uric Acid 5.5 mg/dl (3.5-8.5)
[2023-06-24 08:21] LABS: Thyroid Stimulating Hormone 0.89 uIU/mL (0.465-4.68)
[2023-06-24 08:31] LABS: Procalcitonin 0.204 ng/mL (0.0-2.0)
--- NOTE | 2023-06-24 09:15 | EXP.DC.SUM ---
General Admission date:: 06/23/23 Discharge date: 06/24/23 HPI HPI HPI: Mr. Austin is a 38yo M with hx of DM, HTN, obesity, gout. He presented to the ER with complaint of tight knee pain that has progressed over the past 24-36hrs. He is unable to bear weight, has had some chills. Reports a preceding URI with congestion for the past 5+days. still having some right ear pain. On evaluation in the ER he was noted to have a red, swollen, hot right knee. Joint tender to palpation. He denies other joint pain, has a Hx of gout in his feet. He presented to his PCP yesterday where x-ray of the right knee was obtained with no significant effusion or bony abnormality. Labs concerning for leukocytosis, elevated inflammatory markers. Arthrocentesis performed in the ER and Orthopedics consulted. Due to risk of septic arthritis vs Gout flare, medicine consulted to admit patient and antibiotics were initiated. On evaluation, he feels some minor relief after removal of some fluid. Has had some other sick contacts at home. Still complaining of right ear pain and fullness. Denies any trauma or injury to his knee. I spoke with him in regards to previous gout attacks. He feels like this pain in his knee is similar to the previous gout attacks that he had. Of note he did test positive for COVID. His inflammatory markers are high. Procalcitonin is normal limits. Hospital Course Hospital Course Hospital Course: 38-year-old male with history of diabetes, hypertension, obesity, gout. Presented to the ER with right knee pain, inability to bear weight. Worsening swelling since seeing PCP yesterday. White cell count elevated at 16.3, inflammatory markers elevated, inability to bear weight, uric acid 5.0. Highly suspicious for septic arthritis with 3 of 4 Robinson criteria, 93% probability. Discussed case with ER physician, request admission for IV antibiotics, orthopedics evaluation, and continued medical management. Medicine agreed to admit. Problems addressed as follows: Suspected septic arthritis, ruled out Gout attack Right knee pain - Arthrocentesis performed in the ER. Fluid studies with birefringent crystals confirming gout. Cell count of 14,000, below threshold for septic arthritis. Was initially treated with vancomycin and Zosyn. Given result from fluid study, will hold on further antibiotics at this time. Culture still pending. Discussed case with orthopedics, consulted to assist with care. Confident this is a gouty attack. Will hold on further antibiotics. Okay to discharge home with treatment for gout. Initiated on colchicine, continue twice a day for now with his acute flare and pain. Also initiated on prednisone course for 7 days. Continue 40 mg daily for 7 days. Recommend follow-up with orthopedics for further management. Continue Uloric for gout daily. Uric acid well-controlled at 5.5. Suspect flare secondary to acute illness with COVID inducing inflammation. -White cell count elevated at 16 with elevated inflammatory markers. In light of COVID-19 infection, suspect systemic reaction to viral illness as opposed to infectious process and knee. Pro-Edgar reassuring for no bacterial infection at 0.2 Virla URI sx: Covid positive. Ear pain likely secondary to congestion from COVID. No indication for further antibiotics. Diabetes: A1c in March 7.3, repeat on admission 6.8; on semaglutide and metformin. Resume at discharge. TSH obtained, 0.9. Hypertension: Blood pressure elevated on admission. Continue amlodipine, losartan per home regimen. Stable to discharge home for continued outpatient management. Spent 30 minutes in discharge counseling, documentation, chart review, and direct care with patient. Exam Data for Last 24 hours Vital signs and Labs for Last 24 Hours: Temp Pulse Resp BP Pulse Ox O2 Del Method 99.0 F 79 20 136/78 93 L Room Air 06/24/23 08:00 06/24/23 08:00 06/24/23 08:00 06/24/23 08:00 06/24/23 08:00 06/24/23 08:00 Laboratory Results - last 24 hr 06/23/23 13:14: WBC 16.3 H, RBC 4.49 L, Hgb 13.5 L, Hct 43.2, MCV 96.2 H, MCH 30.0, MCHC 31.1 L, RDW 13.8, Plt Count 357, MPV 8.3, Neut % (Auto) 81.2 H, Lymph % (Auto) 13.9, [place] % (Auto) 4.3, Eos % (Auto) 0.4, Baso % (Auto) 0.2, Neut # (Auto) 13.2 H, Lymph # (Auto) 2.3, [place] # (Auto) 0.7, Eos # (Auto) 0.1, Baso # (Auto) 0.0, Total Counted 100, Neutrophils % (Manual) 72, Lymphocytes % (Manual) 26, Monocytes % (Manual) 2, Platelet Estimate Normal, RBC Morphology Normal, Uric Acid 5.0 06/23/23 14:00: ESR 43 H, Sodium 132 L, Potassium 4.5, Chloride 98, Carbon Dioxide 25, Anion Gap 13.5, BUN 13, Creatinine 1.00, Estimated Creat Clear 195, Estimated GFR 84, Est GFR ( Amer) 102, Glucose 131 H, Hemoglobin A1c 6.8 H, Calcium 9.4, Total Bilirubin 1.4 H, AST 60 H, ALT 99 H, Alkaline Phosphatase 129 H, C-Reactive Protein 296.4 H, Total Protein 8.7 H, Albumin 4.4, Globulin 4.3 H, Albumin/Globulin Ratio 1.0 L, Procalcitonin 0.228 06/23/23 15:10: Fluid Clarity Cloudy, Fluid Lining Cell 0 u/l, Synovial Color Yellow, Synovial RBC 58, Synovial Tot Nuc Cell 53417, Synovial Eosinophils% 0 u/l, Synovial Polynuclear % 10042 u/l, Synovial Lymphocytes % 0 u/l, Synovial Macrophages % 435 u/l, Synovial Crystals Cancelled, Synovial Crystal ID Comment, Synovial Fluid Comment Comment 06/23/23 15:39: SARS-CoV-2 (PCR) Detected A, Influenza A Untype (PCR) Not detected, Influenza Type B (PCR) Not detected 06/23/23 20:45: POC Glucose 108 06/24/23 06:09: POC Glucose 144 H 06/24/23 07:29: Uric Acid 5.5, C-Reactive Protein 295.1 H, Procalcitonin 0.204, TSH 0.89 I & O for Last 24 hours: Intake & Output 06/21/23 06/22/23 06/23/23 06/24/23 23:59 23:59 23:59 23:59 Intake Total 360 / 1260 1380 / 1380 Output Total 0 / 0 0 / 0 Balance 360 / 1260 1380 / 1380 Weight 135.823 kg 134.83 kg Constitutional Constitutional: no acute distress, obese and cooperative *Routine HEENT Exam Head: Present normocephalic Eye: Present EOMI and PERRL ENT: Present mucous membranes moist Comments: Minor erythema of canal on right side, TMs normal with no significant effusions bilaterally *Routine Neck Exam Neck: Present supple; Absent lymphadenopathy *Routine Respiratory Exam Respiratory: Present CTA bilaterally; Absent rhonchi, wheezes or crackles Comments: Cough during exam *Routine Cardiovascular Exam Cardiovascular: Present RRR *Routine Abdominal Exam Abdominal: Present soft and normoactive bowel sounds; Absent tenderness *Routine Rectal Exam Patient deferred: visual exam *Routine Exam Patient deferred: penile exam *Routine Extremities Exam Extremities: Absent cyanosis, clubbing or edema Comments: Right knee not warm today. Still mildly tender. Able to bear weight. *Routine Skin Exam Skin: Present warm; Absent rash *Routine Neurological Exam Neurological: Present alert, oriented X3 and moving all extremities; Absent altered mental status Results Data Completed and Pending Labs on day of discharge: Labs from last 24 hours 06/24/23 06/24/23 06/23/23 07:29 06:09 20:45 WBC RBC Hgb Hct MCV MCH MCHC RDW Plt Count MPV Neut % (Auto) Lymph % (Auto) [place] % (Auto) Eos % (Auto) Baso % (Auto) Neut # (Auto) Lymph # (Auto) [place] # (Auto) Eos # (Auto) Baso # (Auto) Total Counted Neutrophils % (Manual) Lymphocytes % (Manual) Monocytes % (Manual) Platelet Estimate RBC Morphology ESR Sodium Potassium Chloride Carbon Dioxide Anion Gap BUN Creatinine Estimated Creat Clear Estimated GFR Est GFR ( Amer) Glucose POC Glucose 144 H 108 Hemoglobin A1c Uric Acid 5.5 Calcium Total Bilirubin AST ALT Alkaline Phosphatase C-Reactive Protein 295.1 H Total Protein Albumin Globulin Albumin/Globulin Ratio Procalcitonin 0.204 TSH 0.89 Fluid Clarity Fluid Lining Cell Synovial Color Synovial RBC Synovial Tot Nuc Cell Synovial Eosinophils% Synovial Polynuclear % Synovial Lymphocytes % Synovial Macrophages % Synovial Crystals Synovial Crystal ID Synovial Fluid Comment SARS-CoV-2 (PCR) Influenza A Untype (PCR) Influenza Type B (PCR) 06/23/23 06/23/23 06/23/23 15:39 15:10 14:00 WBC RBC Hgb Hct MCV MCH MCHC RDW Plt Count MPV Neut % (Auto) Lymph % (Auto) [place] % (Auto) Eos % (Auto) Baso % (Auto) Neut # (Auto) Lymph # (Auto) [place] # (Auto) Eos # (Auto) Baso # (Auto) Total Counted Neutrophils % (Manual) Lymphocytes % (Manual) Monocytes % (Manual) Platelet Estimate RBC Morphology ESR 43 H Sodium 132 L Potassium 4.5 Chloride 98 Carbon Dioxide 25 Anion Gap 13.5 BUN 13 Creatinine 1.00 Estimated Creat Clear 195 Estimated GFR 84 Est GFR ( Amer) 102 Glucose 131 H POC Glucose Hemoglobin A1c 6.8 H Uric Acid Calcium 9.4 Total Bilirubin 1.4 H AST 60 H ALT 99 H Alkaline Phosphatase 129 H C-Reactive Protein 296.4 H Total Protein 8.7 H Albumin 4.4 Globulin 4.3 H Albumin/Globulin Ratio 1.0 L Procalcitonin 0.228 TSH Fluid Clarity Cloudy Fluid Lining Cell 0 u/l Synovial Color Yellow Synovial RBC 58 Synovial Tot Nuc Cell 46508 Synovial Eosinophils% 0 u/l Synovial Polynuclear % 27365 u/l Synovial Lymphocytes % 0 u/l Synovial Macrophages % 435 u/l Synovial Crystals Cancelled Synovial Crystal ID Comment Synovial Fluid Comment Comment SARS-CoV-2 (PCR) Detected A Influenza A Untype (PCR) Not detected Influenza Type B (PCR) Not detected 06/23/23 13:14 WBC 16.3 H RBC 4.49 L Hgb 13.5 L Hct 43.2 MCV 96.2 H MCH 30.0 MCHC 31.1 L RDW 13.8 Plt Count 357 MPV 8.3 Neut % (Auto) 81.2 H Lymph % (Auto) 13.9 [place] % (Auto) 4.3 Eos % (Auto) 0.4 Baso % (Auto) 0.2 Neut # (Auto) 13.2 H Lymph # (Auto) 2.3 [place] # (Auto) 0.7 Eos # (Auto) 0.1 Baso # (Auto) 0.0 Total Counted 100 Neutrophils % (Manual) 72 Lymphocytes % (Manual) 26 Monocytes % (Manual) 2 Platelet Estimate Normal RBC Morphology Normal ESR Sodium Potassium Chloride Carbon Dioxide Anion Gap BUN Creatinine Estimated Creat Clear Estimated GFR Est GFR ( Amer) Glucose POC Glucose Hemoglobin A1c Uric Acid 5.0 Calcium Total Bilirubin AST ALT Alkaline Phosphatase C-Reactive Protein Total Protein Albumin Globulin Albumin/Globulin Ratio Procalcitonin TSH Fluid Clarity Fluid Lining Cell Synovial Color Synovial RBC Synovial Tot Nuc Cell Synovial Eosinophils% Synovial Polynuclear % Synovial Lymphocytes % Synovial Macrophages % Synovial Crystals Synovial Crystal ID Synovial Fluid Comment SARS-CoV-2 (PCR) Influenza A Untype (PCR) Influenza Type B (PCR) DS: Diagnosis Discharge Diagnosis (1) Effusion, right knee: Status: Acute Code(s): M25.461 - Effusion, right knee (2) Gout attack: Status: Acute Code(s): M10.9 - Gout, unspecified Qualifiers: Gout etiology: idiopathic Gout site: knee Laterality: right Qualified Code(s): M10.061 - Idiopathic gout, right knee (3) Class 2 obesity: Status: Chronic Code(s): E66.9 - Obesity, unspecified (4) Knee pain, right: Status: Acute Code(s): M25.561 - Pain in right knee Qualifiers: Chronicity: acute Qualified Code(s): M25.561 - Pain in right knee (5) Diabetes mellitus: Status: Chronic Code(s): E11.9 - Type 2 diabetes mellitus without complications Qualifiers: Diabetes mellitus complication status: without complication Diabetes mellitus ferry terminal agent insulin use: without ferry terminal agent use Diabetes mellitus type: type 2 Qualified Code(s): E11.9 - Type 2 diabetes mellitus without complications (6) Hypertension: Status: Chronic Code(s): I10 - Essential (primary) hypertension Qualifiers: Hypertension type: primary hypertension Qualified Code(s): I10 - Essential (primary) hypertension (7) COVID-19: Status: Acute Code(s): U07.1 - COVID-19 Meds Home Medications and Allergies Home Medications Medication Instructions Recorded Confirmed Type amlodipine 10 mg tablet 10 mg PO DAILY High Blood Pressure 04/18/23 06/23/23 History semaglutide 0.25 mg or 0.5 mg (2 0.25 mg (0.368 mL) SQ WEEKLY #3 mL 05/31/23 06/23/23 Rx mg/3 mL) subcutaneous pen injector (Ozempic) febuxostat 80 mg tablet 80 mg PO DAILY Gout 06/23/23 06/23/23 History fluticasone propionate 50 1 spray intranasal BID Allergy 06/23/23 06/23/23 History mcg/actuation nasal Symptoms spray,suspension (Allergy Relief (fluticasone)) losartan 50 mg tablet 50 mg PO DAILY High Blood Pressure 06/23/23 06/23/23 History metformin 1,000 mg tablet 1,000 mg PO BIDWMEAL Diabetes 06/23/23 06/23/23 History prochlorperazine maleate 5 mg 5 mg PO TIDP PRN nausea and 06/23/23 06/23/23 History tablet (Compazine) vomiting colchicine 0.6 mg tablet (Colcrys) 0.6 mg PO BID PRN Moderate Pain 06/24/23 Rx (Scale Score 5-6) 10 days #20 tabs prednisone 20 mg tablet 40 mg PO DAILY 7 days #14 tabs 06/24/23 Rx New Prescriptions to Start Prescriptions: colchicine [Colcrys] Mike Almaraz prednisone Mike Almaraz Allergies Allergy/AdvReac Type Severity Reaction Status Date / Time Sulfa (Sulfonamide Allergy Unknown Unknown Verified 06/23/23 15:10 Antibiotics) allergy reaction Penicillins AdvReac Mild Diarrhea Verified 06/23/23 15:10 Discharge Plan Disposition Patient Disposition: Home, Self-Care Condition: Good Follow up Plan Follow up with: Mynor Gray DO [Staff Physician] - Enter time for follow up (Please call Sunday to make a follow up appt. ) Prescriptions/Medication Reconciliation: New colchicine [Colcrys] 0.6 mg Tablet 0.6 mg PO BID PRN (Reason: Moderate Pain (Scale Score 5-6)) 10 Days Qty: 20 0RF prednisone 20 mg tablet 40 mg PO DAILY 7 Days Qty: 14 0RF Continued amlodipine 10 mg tablet 10 mg PO DAILY Ozempic 0.25 mg or 0.5 mg (2 mg/3 mL) pen injector 0.25 mg SQ WEEKLY Qty: 3 1RF losartan 50 mg tablet 50 mg PO DAILY prochlorperazine maleate [Compazine] 5 mg tablet 5 mg PO TIDP PRN (Reason: nausea and vomiting) metformin 1,000 mg tablet 1,000 mg PO BIDWMEAL fluticasone propionate [Allergy Relief (fluticasone)] 50 mcg/actuation spray,suspension 1 spray intranasal BID Rx Instructions: administer into each nostril febuxostat 80 mg tablet 80 mg PO DAILY Problem Reconciliation Problems Reviewed?: Yes Patient Discharge Instructions ACTIVITY: Continue current activity and Ambulate as tolerated DIET: continue same diet Stand Alone Forms: [facility] Work Release Patient Instructions: Septic Arthritis, DI for Septic Arthritis, DI for Arthrocentesis, DI for COVID-19 (Suspected or Confirmed ) Providers Primary Care Provider: Dharmesh Bravo Admit Provider: Mike Almaraz Attending Provider: Mike Almaraz
[2023-06-24 09:25] LABS: Basophils % 0.2 % (0.1-2.0); Eosinophils % 0.1 % (0.1-12.0); Hematocrit 39.3 % (42.0-52.0); Hemoglobin 13.1 g/dL (14.1-18.0); Lymphocytes # 2.4 K/mm3 (0.7-4.5); Lymphocytes % 15.8 % (10-50); Mean Corpuscular HGB Conc 33.3 g/dL (31.8-35.4); Mean Corpuscular Hemoglobin 31.5 pg (27.0-31.2); Mean Corpuscular Volume 94.6 fl (80-94); Monocytes # 0.5 K/mm3 (0.1-1.0); Monocytes % 2.9 % (1.7-9.3); Neutrophils # 12.4 K/mm3 (1.8-7.8); Neutrophils % 80.8 % (37.0-80.0); Platelet Count 399 K/mm3 (142-424); Red Blood Count 4.15 M/mm3 (4.60-6.20); Red Cell Distribution Width 13.6 % (11.5-17.5); White Blood Count 15.3 K/mm3 (4.8-10.8)
[2023-06-24 09:30] LABS: Chloride 101 mmol/L (98-107); Potassium 4.5 mmoL/L (3.5-5.1); Sodium 135 mmol/L (136-145)
[2023-06-24 09:32] LABS: Blood Urea Nitrogen 18 mg/dl (9-20); Creatinine Clearance Estimated 161 mL/min (50-200); Estimated Glomerular Filt Rate 68 ml/min (>60); GFR (African American) 82 ML/MIN (>60)
[2023-06-24 09:33] LABS: Alanine Aminotransferase 114 U/L (12-78); Albumin Level 4.1 g/dl (3.5-5.0); Alkaline Phosphatase 123 U/L (38-126); Anion Gap 9.5 mEq/L (5-15); Aspartate Amino Transferase 68 U/L (17-59); Bilirubin,Total 0.6 mg/dl (0.2-1.3); Calcium 9.3 mg/dl (8.4-10.2); Carbon Dioxide 29 mmol/L (22.0-30.0); Globulin 4.1 g/dL (1.3-3.2); Glucose 152 mg/dl (74-100); Total Protein,Serum 8.2 g/dl (6.3-8.2)
[2023-06-24 10:23] LABS: MANUAL DIFFERENTIAL MANUAL DIFFERENTIAL (MANUAL DIFF)
[2023-06-24] MEDS: AMLODIPINE 10MG TABLET 10 MG PO (10:26)
[2023-06-24] MEDS: METFORMIN 500MG TABLET 1000 MG PO (10:26)
[2023-06-24] MEDS: COLCHICINE 0.6MG TABLET 0.599999999999999978 MG PO (10:26)
[2023-06-24] MEDS: METHYLPREDNISOLONE SOD SUCC 40MG VIAL 20 MG IV (10:26)
[2023-06-24 10:44] LABS: POC Glucose,Bedside 141 (70-110)
[2023-06-24 12:24] LABS: Lymphocytes % 23 % (10-50); Monocytes % 1 % (2-9); Neutrophils % 76 % (42-76); Platelet Estimate Normal; RBC Morphology Normal; Total Cells Counted 100
--- NOTE | 2023-06-25 14:25 | CARE MANAGER ---
Called and spoke with patient regarding recent discharge. Patient voiced no concerns at time of call. Has scheduled f/u appt.
== END 2023-06-24 12:06 | disposition home or self-care (01) ==
LOC: UTC 13:49 → ER 13:49 → 2ND 15:40
PROVIDERS: Nurse Practitioner Family; Admitting Provider Internal Medicine Adolescent Medicine; Emergency Provider Emergency Medicine; PCP Internal Medicine; Visit Provider Internal Medicine Adolescent Medicine
DX: M25.561 Pain in right knee (principal); Z79.899 Other long term (current) drug therapy; Z79.84 Long term (current) use of oral hypoglycemic drugs; I10 Essential (primary) hypertension; E11.9 Type 2 diabetes mellitus without complications; E66.9 Obesity, unspecified; M25.461 Effusion, right knee; M10.061 Idiopathic gout, right knee; U07.1 COVID-19; Z79.85 Long-term (current) use of injectable non-insulin antidiabetic drugs; Z68.37 Body mass index [BMI] 37.0-37.9, adult
CPT/HCPCS: 20610; 36415; 80053; 82962; 83036; 84145; 84443; 84550; 85007; 85014; 85018; 85025; 85048; 85049; 85651; 86140; 87040; 87070; 87205; 87636; 89051; 99285; G0378; J2405; J2543; J3370

== ENCOUNTER 2024-01-01 16:21 | Outpatient (CLI) | payer BC, SELFPAY ==
[2024-01-01 17:19] LABS: Basophils # 0.1 K/mm3 (0-0.2); Basophils % 0.6 % (0.1-2.0); Eosinophils # 0.2 K/mm3 (0.0-0.4); Hematocrit 42.5 % (42.0-52.0); Hemoglobin 13.4 g/dL (14.1-18.0); Lymphocytes # 3.2 K/mm3 (0.7-4.5); Lymphocytes % 38.1 % (10-50); Mean Corpuscular HGB Conc 31.5 g/dL (31.8-35.4); Mean Corpuscular Hemoglobin 29.6 pg (27.0-31.2); Mean Corpuscular Volume 94.1 fl (80-94); Mean Platelet Volume 8.3 fl (7.4-10.4); Monocytes # 0.4 K/mm3 (0.1-1.0); Monocytes % 4.6 % (1.7-9.3); Neutrophils # 4.6 K/mm3 (1.8-7.8); Neutrophils % 54.6 % (37.0-80.0); Platelet Count 324 K/mm3 (142-424); Red Blood Count 4.52 M/mm3 (4.60-6.20); Red Cell Distribution Width 14.1 % (11.5-17.5); White Blood Count 8.5 K/mm3 (4.8-10.8)
[2024-01-01 17:24] LABS: Hemoglobin A1C 5.7 % (4.0-6.0)
[2024-01-01 17:39] LABS: Alanine Aminotransferase 42 U/L (12-78); Albumin/Globulin Ratio 1.3 (1.1-1.8); Aspartate Amino Transferase 31 U/L (17-59); Blood Urea Nitrogen 10 mg/dl (9-20); Calcium 9.1 mg/dl (8.4-10.2); Carbon Dioxide 25 mmol/L (22.0-30.0); Chloride 103 mmol/L (98-107); Estimated Glomerular Filt Rate 109 ml/min (>60); GFR (African American) 132 ML/MIN (>60); Glucose 106 mg/dl (74-100); Sodium 136 mmol/L (136-145); Uric Acid 6.3 mg/dl (3.5-8.5)
[2024-01-01 17:40] LABS: Alkaline Phosphatase 88 U/L (38-126); Bilirubin,Total 0.7 mg/dl (0.2-1.3)
== END 2024-01-01 23:59 | disposition home or self-care (01) ==
LOC: LAB 16:22
PROVIDERS: PCP Internal Medicine; Visit Provider Nurse Practitioner Family
DX: M10.9 Gout, unspecified (principal); E11.9 Type 2 diabetes mellitus without complications; Z79.85 Long-term (current) use of injectable non-insulin antidiabetic drugs; Z79.84 Long term (current) use of oral hypoglycemic drugs; R53.83 Other fatigue
CPT/HCPCS: 36415; 80053; 83036; 84550; 85025